=== PATIENT | male | born 1950 | race Two or more races ===

== ENCOUNTER 2017-01-15 13:03 | Inpatient (IN) | payer BC ==
[~2017-01-15] VITALS: Ht 165.1 cm; Wt 79.3 kg
[~2017-01-15 13:03] MED LIST changes: -ASPI325T28 PO; -ASPI81TA85 PO; -ATOR1TAB21 PO; -COLA100C PO; -IRON65TA PO; -PANT40TA2 PO; -PLAV75TA38 PO; -SUCR1TA PO
[2017-01-15 15:31] LABS: ANION GAP 8 MEQ/L (8-16); BLOOD UREA NITROGEN 21 MG/DL (7-18); CALCIUM LEVEL 7.9 MG/DL (8.8-10.2); CARBON DIOXIDE LEVEL 24 MEQ/L (21-32); CHLORIDE LEVEL 109 MEQ/L (98-107); CREATININE FOR GFR 0.91 MG/DL (0.70-1.30); GLOMERULAR FILTRATION RATE > 60.0 (>49); GLUCOSE, FASTING 106 MG/DL (80-110); POTASSIUM SERUM 3.9 MEQ/L (3.5-5.1); SODIUM LEVEL 141 MEQ/L (136-145)
[2017-01-15 15:32] LABS: BASO % 0.5 % (0.0-1.0); EOS # 0.2 K/mm3 (0.0-0.50); EOS % 3.7 % (0.0-3.0); LARGE UNSTAINED CELL # 0.1 K/mm3 (0.0-0.4); LARGE UNSTAINED CELL % 1.8 % (0.0-4.0); LYMPH % 15.3 % (24.0-44.0); MEAN CORPUSCULAR HEMOGLOBIN 29.8 pg (27.0-33.0); MEAN CORPUSCULAR HGB CONC 32.7 g/dl (32.0-36.5); MEAN CORPUSCULAR VOLUME 91.2 fl (80.0-96.0); MONO # 0.4 K/mm3 (0.0-0.8); MONO % 6.9 % (0.0-5.0); NEUTROPHILS # 4.2 K/mm3 (1.8-7.7); NEUTROPHILS % 71.8 % (36.0-66.0); PLATELET COUNT, AUTOMATED 185 k/mm3 (150-450); RED CELL DISTRIBUTION WIDTH 16.5 % (11.5-14.5); WHITE BLOOD COUNT 5.8 K/mm3 (4.0-10.0)
[2017-01-15 16:16] LABS: ALBUMIN 3.1 GM/DL (3.2-5.2); ALBUMIN/GLOBULIN RATIO 1.19 (1.00-1.93); ALKALINE PHOSPHATASE 44 U/L (45-117); ALT/SGPT 12 U/L (12-78); AST/SGOT 10 U/L (15-37); BILIRUBIN,DIRECT < 0.1 MG/DL (0.0-0.2); BILIRUBIN,TOTAL 0.4 MG/DL (0.2-1.0); TOTAL PROTEIN 5.7 GM/DL (6.4-8.2)
[2017-01-15] MEDS ORDERED: ATOR1TAB21 PO (16:35)
[2017-01-15] MEDS ORDERED: PLAV75TA38 PO (16:35)
[2017-01-15] MEDS ORDERED: ASPI325T28 PO (16:35)
[2017-01-15] MEDS ORDERED: GASTROGRAFIN SOLUTION 30ML (Q9963) As Ordered ONE (17:06)
[2017-01-15] MEDS ORDERED: ISOVUE-370 76% 100ML VIAL (Q9967) As Ordered ONE (18:13)
--- NOTE | 2017-01-15 18:45 | REP ---
Clinical: Hematochezia. Technique: Axial contrast enhanced images from the lung bases to the pubic symphysis using oral and 100 ml Isovue 370 intravenous contrast material with coronal and sagittal re-formations. Comparison: 07/23/2011. Findings: Lung bases are clear. Liver, spleen, pancreas, gallbladder, and bilateral adrenal glands appear normal. Nonobstructing intrarenal calculi and/or renovascular calcifications are appreciated along with right cortical cysts measuring up to 2 cm and lower pole hydronephrosis which is likely chronic and without obvious cause for obstruction. The enteric system is without obstruction or acute inflammatory process. No significant diverticulosis or mass lesion is appreciated involving the small or large bowel. Pelvis demonstrates distended bladder and age appropriate prostate/seminal vesicles. No ascites. No free air. No intraperitoneal or retroperitoneal adenopathy. Atherosclerotic changes of the aorta and vasculature noted without aneurysm. Surrounding musculoskeletal structures demonstrate degenerative changes. Impression: 1. Kidneys demonstrate renovascular calcifications and possible nonobstructing renal calculi. There is evidence for mild chronic-appearing hydronephrosis involving the lower pole right kidney without obvious obstructing cause. 2. The enteric system is unremarkable. 3. No further acute intra-abdominal or pelvic pathology appreciated. Signed by Kemal Holder MD 01/15/2017 06:36 P
--- NOTE | 2017-01-15 20:44 | HPE ---
DATE OF ADMISSION: 01/15/2017 HOSPITALIZATION COURSE: The patient is a 66-year-old male with past medical history significant for coronary artery disease, status post angioplasty, history of throat cancer, presented to [facility] on 01/15/2017 for bright red blood per rectum. Patient stated since 01/13/2017, patient stated having increased stomach cramps with diarrhea and he noticed stool is mostly watery with bright red blood and never had similar symptoms in the past. Cannot recall any specific triggers. On average patient will have 5-6 bowel movements in the last few days. Patient never had a colonoscopy before. Patient has been taking aspirin and Plavix after his coronary angioplasty since 2014. ALLERGIES: PENICILLIN. HOME MEDICATION: - aspirin 325 mg by mouth daily - Plavix 300 mg by mouth every day - Lipitor 20 mg by mouth every day PAST MEDICAL HISTORY: 1. Cardiovascular disease. 2. History of throat cancer. 3. History of angioplasty January 2015. 4. [id number] placement and removal. 5. Feeding tube placement and removal. SOCIAL HISTORY: Patient is continuing to smoke 1 1/2 pack daily for more than 40 years. Denies alcohol use. Denies any recreational drug use. GENERAL: No fever, no chills. HEENT: No vision changes or auditory changes. CARDIOVASCULAR: History of heart attack status post angioplasty in January 2015. Denies any current chest pain or palpitation or irregular heart rate. RESPIRATORY: No shortness of breath, no cough, no sputum production. GI: Started having frequent abdominal pain, bloody diarrhea since Saturday. Stool has been watery mostly. MUSCULOSKELETAL : Denies any muscle pain or joint pain. NEUROLOGIC: Denies any numbness or tingling. Blood pressure is 106/60, pulse is 85, respiration 18, temperature 97.6, pulse ox is 100% on room air. Body weight is 81.6 kg, body height is 165.1 cm. GENERAL: No sign of acute distress. Pale, fatigue, alert and oriented times three. HEENT: Normocephalic, atraumatic. Extraocular motor grossly intact. CARDIOVASCULAR: Positive systolic murmur best heard at intercostal space. Positive S1, S2. Regular rate. LUNGS: Decreased breath sounds, clear to auscultation bilaterally. No wheezes or rhonchi. ABDOMEN: Soft, non-tender, non-distended. Bowel sounds present. No rebound, no guarding. EXTREMITIES: Pale, no swelling, no sign of cyanosis. NEUROLOGICAL: Sensation fine touch grossly intact. Muscle strength 5/5. LABORATORY DATA: WBC 5.8, hemoglobin 5.7, hematocrit 17.4, platelet count is 185, sodium 141, potassium 3.9, chloride is 109, carbon dioxide 24, BUN 21, creatinine 0.91. Glomerular filtration rate (GFR) is greater than 60. IMAGING STUDIES: CT abdomen and pelvis with contrast kidney demonstrate neovascular calcification and possible obstructing renal calculi that is evident of mild chronic appearing hydronephrosis involving the lower pole of the right kidney with obvious obstruction cause. The enteric system is unremarkable. No further acute intraabdominal or pelvic pathology. ASSESSMENT AND PLAN: 1. Symptomatic anemia secondary to GI loss. Patient will be on the progressive care unit (PCU) under inpatient status. Dr. Elias has been consulted. Currently recommend blood transfusion and patient may have colonoscopy on 01/17/2017. We will check a hemoglobin and hematocrit every 6 hours. Patient presented with hemoglobin of 5.7, hematocrit of 17.4. Two units of packed red blood cells has been ordered and we will continue to monitor. At this point patient will be on nothing by mouth after blood transfusion. Patient will continue with IV fluid. 2. Patient has been taking aspirin and Plavix after the angioplasty. Due to recurrent GI bleed, this medication will be on hold. 3. History of myocardial infarction (MN) status post angioplasty. 4. History of throat cancer. 5. History of heart murmur. 6. Deep vein thrombosis prophylaxis on thromboembolic deterrent stockings (TEDS) and sequentials and compression device.
[2017-01-15] MEDS ORDERED: PANTOPRAZOLE 40MG INJ (PROTONIX) (C9113) As Ordered ONE (22:46)
[2017-01-15] MEDS: PANTOPRAZOLE 40MG INJ (PROTONIX) (C9113) IV SCH (22:52)
[2017-01-15] MEDS: OCTREOTIDE ACETATE 100 MCG/ML VIAL (J2354) SC SCH (22:52)
[2017-01-15] MEDS: NS 1,000 ML IV SCH (22:58)
[2017-01-15 23:00] VITALS: BP 123/71
[2017-01-15 23:45] VITALS: BP 117/62
[2017-01-16] VITALS (10 sets, daily range): BP systolic 96–118; BP diastolic 53–71
[2017-01-16] MEDS: OCTREOTIDE ACETATE 100 MCG/ML VIAL (J2354) SC SCH ×3 (06:12→22:08)
[2017-01-16 07:30] LABS: MEAN CORPUSCULAR HEMOGLOBIN 30.5 pg (27.0-33.0); MEAN CORPUSCULAR HGB CONC 33.9 g/dl (32.0-36.5); MEAN CORPUSCULAR VOLUME 89.9 fl (80.0-96.0); RED CELL DISTRIBUTION WIDTH 15.6 % (11.5-14.5); WHITE BLOOD COUNT 4.4 K/mm3 (4.0-10.0)
[2017-01-16 08:06] LABS: ANION GAP 5 MEQ/L (8-16); BLOOD UREA NITROGEN 12 MG/DL (7-18); CALCIUM LEVEL 7.9 MG/DL (8.8-10.2); CARBON DIOXIDE LEVEL 28 MEQ/L (21-32); CHLORIDE LEVEL 109 MEQ/L (98-107); CREATININE FOR GFR 0.89 MG/DL (0.70-1.30); GLOMERULAR FILTRATION RATE > 60.0 (>49); GLUCOSE, FASTING 120 MG/DL (80-110); POTASSIUM SERUM 3.7 MEQ/L (3.5-5.1); SODIUM LEVEL 142 MEQ/L (136-145)
--- NOTE | 2017-01-16 08:34 | ECGEPIP ---
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
[2017-01-16] MEDS: NICOTINE 21MG/24HR 1 EA TRANSDERMAL TD SCH (09:30)
[2017-01-16] MEDS: PANTOPRAZOLE 40MG INJ (PROTONIX) (C9113) IV SCH ×2 (09:30→21:54)
[2017-01-16] MEDS: NS 1,000 ML IV SCH ×2 (09:30→21:54)
[2017-01-16] MEDS: ATORVASTATIN 20 MG TAB PO SCH (09:30)
--- NOTE | 2017-01-16 14:20 | IPNPDOC ---
Text Note Date of Service The patient was seen on 01/16/17. NOTE Subjective: Patient is a 66 year old male with a PMHx of CAD s/p angio, PVD s/p stent 01/2015, Hx of Throat CA, who presented to the ED with complaints of bright red blood per rectum. Since 01/13 he has been having stomach cramps, diarrhea with watery stools and blood. He has had a colonoscopy in 04/2016 which was un-revealing. He was found to have a Hg of 5.7 and received 3 units PRBC transfusion. Patient was seen and examined at the bedside. At this time he has no new complaints. Objective: Vitals (See below) General: Lying in bed, no acute distress, comfortable, AAOx3 HEENT: NC, AT CVS: RRR, +S1S2 Lungs: Fair air entry b/l, -w/r/r Abdomen: Soft, ND, NT, +BSx4 Extremities: -edema, -calf tenderness Assessment and plan: 1. Acute symptomatic anemia - likely 2/2 acute blood loss - likely 2/2 GI source - possibly lower, possibly upper - Presented with bright red bleeding per rectum for 3 days duration - Has had a Hg of 5.7 on presentation - s/p 3 units PRBC transfusion - will follow H&H [id number] - will hold aspirin and plavix - will c/w protonix IV BID - Dr. Elias for surgery has been consulted - will be prepped for upper and lower endoscopy on 01/17 2. CAD s/p angioplasty and PVD s/p stent placement - most recent cath was 01/2015 - will hold aspirin and plavix at this time 3. Hx of throat CA 4. Systolic heart murmur 5. Nicotine dependence - c/w nicotine patch 6. DVT prophylaxis - c/w SCDs VS,Fishbone, I+O VS, Fishbone, I+O Laboratory Tests 01/15/17 14:56 Red Blood Count 1.90 L, Mean Corpuscular Volume 91.2, Mean Corpuscular Hemoglobin 29.8, Mean Corpuscular Hemoglobin Concent 32.7, Red Cell Distribution Width 16.5 H, Neutrophils (%) (Auto) 71.8 H, Lymphocytes (%) (Auto ) 15.3 L, Monocytes (%) (Auto) 6.9 H, Eosinophils (%) (Auto) 3.7 H, Basophils (% ) (Auto) 0.5, Neutrophils # (Auto) 4.2, Lymphocytes # (Auto) 1.0 L, Monocytes # (Auto) 0.4, Eosinophils # (Auto) 0.2, Basophils # (Auto) 0.0 01/16/17 00:01 01/16/17 07:18 Red Blood Count 2.89 L, Mean Corpuscular Volume 89.9, Mean Corpuscular Hemoglobin 30.5, Mean Corpuscular Hemoglobin Concent 33.9, Red Cell Distribution Width 15.6 H, Calcium Level 7.9 L 01/16/17 11:54 Vital Signs Date Time Temp Pulse Resp B/P Pulse Ox O2 Delivery O2 Flow Rate FiO2 01/16/17 12:00 96.7 76 16 100/57 97 Room Air I&O- Last 24 Hours up to 6 AM 01/16/17 06:00 Intake Total 500 ml Output Total 900 ml Balance -400 ml FAUSTO WOODS MD Jan 16, 2017 14:20
[2017-01-16] MEDS ORDERED: MOM 30ML SUSPENSION UDC PO ONE (14:45)
[2017-01-16] MEDS ORDERED: MOM 30ML SUSPENSION UDC As Ordered ONE (15:54)
--- NOTE | 2017-01-16 20:35 | EDDOCDS ---
Physician Documentation [facility] Name: Fred Riggs Age: 66 yrs Sex: Male : 1950 Arrival Date: 01/15/2017 Time: 13:03 Bed Admit Hold Private MD: Nestor Franco H. Disposition: 01/15 18:29 Critical Care:. pc Disposition: 01/15/17 18:32 Hospitalization ordered by Cira Ayala for Inpatient Admission. Preliminary diagnosis are Gastrointestinal hemorrhage, unspecified - Lower, Cardiac murmur, unspecified, Anemia, unspecified - severe, symptomatic. - Bed requested for M PCU. - Status is Inpatient Admission. sls1 - Condition is Stable. - Problem is new. - Symptoms have improved. HPI: 14:56 This 66 yrs old Other Male presents to ER via Wheelchair with complaints of Dizziness. pc 14:56 The history is obtained from the patient. He has had abdominal cramping and diarrhea pc for 36 hours. He had an episode of diarrhea at work and felt weak afterwards. He says he has occasional blood in his stool but does not describe balbina blood. 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 It lasted less than 5 seconds and has not recurred. He denies any headaches, fevers or chills. The patient has not experienced similar symptoms in the past. The patient has not recently seen a physician. Historical: - Allergies: PENICILLINS; - Home Meds: 1. Plavix 300 mg Oral tab daily (Last dose: 01/15/2017) 2. Lipitor 20 mg oral tab 1 tab once daily (Last dose: 01/15/2017) 3. aspirin 325 mg Oral tab 1 tab once daily (Last dose: 01/15/2017) - PMHx: Heart Murmer; CAD; PR; cancer, throat; - PSHx: Angioplasty (January 2015); Portocath placement and removal; feeding tube placement and removal; - The history from nurses notes was reviewed: and I agree with what is documented. - Social history: Smoking status: Patient uses tobacco products, heavy tobacco smoker. No barriers to communication noted. - : The pt / caregiver states he / she is on anticoagulants: Plavix. Home medication list is obtained from the patient. - Hospitalizations: : No recent hospitalization is reported. - Exposure Risk Screening:: None identified. - Immunization history:: All immunizations up-to-date. - Family history: Not pertinent. - Social history:: the patient smokes cigarettes 1ppd the patient drinks alcohol, socially. ROS: 14:56 MS/Skin/Lymph: chronic calf claudication. pc 14:56 All systems are negative except as listed. Exam: 14:56 General Appearance: no acute distress, alert. pc 14:56 EENT: normal eye inspection, ears, nose and throat normal, pharynx normal, mucous membranes moist 14:56 Neck: The exam reveals no acute abnormalities. ROM is normal and painless. No nuchal rigidity is noted.. 14:56 Respiratory: no respiratory distress, normal breath sounds. 14:56 CVS: regular pulse rate, regular rhythm, strong peripheral pulses, normal capillary refill, there is a murmur, systolic, grade 2 out of 6. 14:56 Abdomen: soft, non-tender, no organomegaly, bowel sounds hyperactive. 14:56 Back: normal inspection. 14:56 Skin: skin color is normal, warm, dry. 14:56 Extremities: The extremities have a grossly normal appearance, are non-tender, without acute ROM abnormalities. 14:56 Neuro: oriented x 3, cranial nerves normal as tested, no motor deficits, no sensory deficits. 14:56 Psych: normal mood. Vital Signs: 13:04 BP 106 / 60; Pulse 85; Resp 18; Temp 97.6(O); Pulse Ox 100% on R/A; Weight 81.65 kg / ct3 180.01 lbs (R); Height 5 ft. 5 in. (165.10 cm) (R); Pain 0/10; 19:10 BP 104 / 60 (auto/); ld5 19:11 Pulse 82 MON; Pulse Ox 98% ; ld5 19:19 BP 98 / 61 (auto/); ld5 19:19 Pulse 78 MON; Pulse Ox 96% ; ld5 19:49 BP 103 / 56 (auto/); ld5 19:49 Pulse 82 MON; Pulse Ox 93% ; ld5 19:55 Resp 16; Temp 97.2; Pain 0/10; ld5 20:19 BP 117 / 59 (auto/); ld5 20:19 Pulse 80 MON; Pulse Ox 97% ; ld5 20:45 Temp 98; ld5 20:49 BP 112 / 59 (auto/); ld5 20:49 Pulse 86 MON; Pulse Ox 96% ; ld5 21:19 Pulse 84 MON; Pulse Ox 96% ; ld5 21:19 BP 109 / 62 (auto/); Resp 16; Temp 97.4; Pain 0/10; ld5 21:40 BP 105 / 55 (auto/); ld5 21:40 Pulse 84 MON; Pulse Ox 95% ; ld5 21:49 BP 108 / 57 (auto/); ld5 21:49 Pulse 82 MON; Pulse Ox 95% ; ld5 13:04 Body Mass Index 29.95 (81.65 kg, 165.10 cm) ct3 MDM: 13:32 Accucheck ordered. cjh 13:33 ECG WITH READING ER PHYS+CARDIAG ordered. EDMS 13:47 Fingerstick Blood Sugar Ordered. EDMS 14:44 IV Saline Lock ordered. pc 14:45 Fingerstick Blood Sugar Reviewed. pc 14:45 Stool samples ordered. pc 14:46 CBC with Diff Ordered. EDMS 14:46 MED Profile Ordered. EDMS 14:56 Differential Diagnosis: diarrheal illness, brief episode of dizziness - resolved, CAD, pc PAD. Plan: labs. 15:38 CBC with Diff Reviewed. pc 15:38 MED Profile Reviewed. pc 15:40 Type & Screen Ordered. EDMS 15:41 Financial registration complete. gjb 15:59 BED REQUEST+ADM ordered. EDMS 16:05 LIVER PROFILE Ordered. EDMS 16:08 [facility] Payment Agreement was scanned into [employer] and attached to record. gjb 16:12 MED Profile Reviewed. pc 16:30 MED Profile Reviewed. pc 16:30 LIVER PROFILE Reviewed. pc 16:33 CT ABD & PELVIS: IV and Oral Contrast Ordered. EDMS 17:13 Diatrizoate Meglumine & Sodium Liquid 10 ml PO once; mix in 290cc of water ordered. bcj 17:54 Diatrizoate Meglumine & Sodium Liquid 10 ml PO once; mix in 290cc of water ordered. bcj 18:13 Type & Screen Reviewed. pc 18:15 Transfuse PRBC's 2 units, ensure PRBCs ordered in lab ordered. pc 18:16 Type and Cross, Packed Cells Ordered. EDMS 18:29 Data reviewed: old medical records, vital signs, nurses notes, lab test results. Test pc interpretation: LAB - all labs as ordered have been reviewed, interpreted and considered in the overall management of the clinical presentation;. The patient has been re-examined and re-evaluated. The patient's symptoms have mildly improved after treatment. Physician consultation: Dr. Nic Elias MD regarding patient's condition, and he requests the CT as ordered and will see in consult . 18:29 Physician consultation: Dr. Cira Ayala regarding admission. Disposition: The historical pc points, examination findings, and any diagnostic results supporting the provided diagnosis, were discussed with the patient or legal guardian. The need for further work-up and/or treatment in the hospital was explained. 19:59 Admission / Observation Status ordered. EDMS 19:59 GASTROINTESTINAL (GI) PANEL Ordered. EDMS 20:02 HEMOGLOBIN & HEMATOCRIT Ordered. EDMS 20:02 COMPLETE BLOOD COUNT Ordered. EDMS 20:02 BASIC METABOLIC PROFILE Ordered. EDMS 20:11 HEMOGLOBIN A1C Ordered. EDMS 02 03:47 PACKED CELLS Ordered. EDMS 07:52 HEMOGLOBIN & HEMATOCRIT Ordered. EDMS 07:52 HEMOGLOBIN & HEMATOCRIT Ordered. EDMS 09:57 CLEAR LIQUIDS DIET ordered. EDMS 10:00 NPO DIET ordered. EDMS 19:31 HEMOGLOBIN & HEMATOCRIT Ordered. EDMS 19:31 COMPLETE BLOOD COUNT Ordered. EDMS 19:31 BASIC METABOLIC PROFILE Ordered. EDID Point of Care Testing: Blood Glucose: 01/15 14:17 Blood Glucose: 123 mg/dL; [facility] Ranges: Administered Medications: 07:45 Drug: Diatrizoate Meglumine & Sodium 10 ml [diatrizoate meglumine and diat.sodium 66 bcj %-10 % oral solution (10 mL)] Route: PO; 17:13 Drug: Diatrizoate Meglumine & Sodium 10 ml [diatrizoate meglumine and diat.sodium 66 bcj %-10 % oral solution (10 mL)] Route: PO; Critical Care Time: 18:29 Critical care time: Bedside Care: 25 minutes, Consultation: 20 minutes, Family pc Intervention: 15 minutes. Total time: 60 minutes Signatures: Dispatcher [employer] HAMZAHID Jorge Bonilla MD MD pc Johnson, Bruce, RN RN bcj Ques[place] [facility], Deborah, RN RN daq Strong, Shannon, RN RN sls1 Adriana Li RN RN [facility] Neel Gaitan RN RN Eri Iqbal The chart was reviewed and I authenticate all verbal orders and agree with the evaluation and treatment provided.Corrections: (The following items were deleted from the chart) 13:43 13:34 PMHx: cancer, lung; [facility] 16:05 15:41 LIVER PROFILE+LAB ordered. EDMS EDMS 18:22 18:19 TYPE & SCREEN ordered. EDMS EDMS 19:59 19:59 GASTROINTESTINAL (GI) PANEL ordered. EDMS EDMS 19:59 19:59 GASTROINTESTINAL (GI) PANEL ordered. EDMS EDMS 01/16 04:05 03:49 TYPE & SCREEN ordered. EDMS EDMS 09:57 01/15 19:59 NPO DIET ordered. EDMS EDMS 01/16 09:59 09:57 NPO FOR TEST/PROCEDURE ordered. EDMS EDMS : 01/15 16:08 [facility] Payment Agreement vi MTDD
--- NOTE | 2017-01-16 20:36 | EDDOCDS ---
Nurse's Notes [facility] Name: Frde Dave Age: 66 yrs Sex: Male : 1950 Arrival Date: 01/15/2017 Time: 13:03 Bed Admit Hold Private MD: Nestor Franco H. Diagnosis: Gastrointestinal hemorrhage, unspecified-Lower;Cardiac murmur, unspecified;Anemia, unspecified-severe, symptomatic Presentation: 01/15 13:15 Presenting complaint: Patient states: stomach cramps and diarrhea started last Saturday, [facility] today noted cramping in legs on both sides in back, couldn't stay at work walking on concrete, then daughter took him to Urgent Care and they told him to come here after doing negative flu swab, negative strep and an EKG showing Sinus Rhythm with LVH, has a history of blood clots, had one behind his chemo port just finished unknown blood thinner in addition to Plavix which has been on for years. Here today for cramping pain in legs and daughter feels he is pale. Daughter states home fingersitck 166 at 100 even though didn't eat since 5am. Patient also states diarrhea has been red and bloody. Adult Sepsis Screening: The patient does not have new or worsening altered mentation. Patient's respiratory rate is less than 22. Systolic blood pressure is greater than 100. Patient has a qSOFA score of 0- Negative Sepsis Screen. Suicide/Homicide risk assessment- the patient denies having any suicidal and/or homicidal ideations and does not present with any other emotional, behavioral or mental health complaints. Status: Patient is not a special service representative or dependent. Transition of care: patient was not received from another setting of care. 13:15 Acuity: PAYTON Level 3 [facility] 13:15 Method Of Arrival: Wheelchair [facility] Triage Assessment: 13:24 General: Appears in no apparent distress, comfortable, Behavior is appropriate for age, [facility] cooperative. Pain: Denies pain. HIV screening NA for this visit Offered previously. Neurological: Level of Consciousness is awake, alert, Oriented to person, place, time. Respiratory: Airway is patent Respiratory effort is even, unlabored, Respiratory pattern is regular, symmetrical. GI: Reports cramping, diarrhea. Derm: Skin is pink, warm & dry. Musculoskeletal: Range of motion intact in all extremities. Historical: - Allergies: PENICILLINS; - Home Meds: 1. Plavix 300 mg Oral tab daily (Last dose: 01/15/2017) 2. Lipitor 20 mg oral tab 1 tab once daily (Last dose: 01/15/2017) 3. aspirin 325 mg Oral tab 1 tab once daily (Last dose: 01/15/2017) - PMHx: Heart Murmer; CAD; [place]; cancer, throat; - PSHx: Angioplasty (January 2015); Portocath placement and removal; feeding tube placement and removal; - The history from nurses notes was reviewed: and I agree with what is documented. - Social history: Smoking status: Patient uses tobacco products, heavy tobacco smoker. No barriers to communication noted. - : The pt / caregiver states he / she is on anticoagulants: Plavix. Home medication list is obtained from the patient. - Hospitalizations: : No recent hospitalization is reported. - Exposure Risk Screening:: None identified. - Immunization history:: All immunizations up-to-date. - Family history: Not pertinent. - Social history:: the patient smokes cigarettes 1ppd the patient drinks alcohol, socially. Screenin:00 Screening information is obtained from the patient. Fall risk: No risks identified. bcj Assistance ADL's: requires no assistance with activities of daily living. Abuse/DV Screen: The patient / caregiver reports he/she is: not in a situation that causes fear, pain or injury. Nutritional screening: No deficits noted. Advance Directives: Currently, there is no health care proxy. home support is adequate. Assessment: 15:00 General: Appears in no apparent distress, comfortable, Behavior is cooperative. Pain: bcj Denies pain. Respiratory: Airway is patent Respiratory effort is even, unlabored. Derm: Skin is pink, warm & dry. Musculoskeletal: both calves soft non tender. 18:32 General: Appears in no apparent distress, comfortable, Behavior is cooperative. Pain: bcj Denies pain. GI: Abdomen is flat, non- distended. 19:05 General: Appears in no apparent distress, Behavior is appropriate for age, cooperative. ld5 Pain: Denies pain. Neurological: Level of Consciousness is awake, alert, Oriented to person, place, time, Health And Wellness Advisor are equal bilaterally. Respiratory: Airway is patent Respiratory effort is even, unlabored, Breath sounds are clear bilaterally. Denies shortness of breath at rest, on exertion. GI: Abdomen is non- distended Bowel sounds present X 4 quads. Abd is soft and non tender X 4 quads. Denies nausea, vomiting. Derm: Skin is intact, Skin is dry, Skin is pale. 19:50 General: Pt laying in bed watching TV. Requesting food. This RN explained to pt that we ld5 should have to wait until the Hospitalist sees pt to make a decision regarding food. Pt denies any pain. Tolerating transfusion well. Respirations easy and unlabored. Will continue to monitor. 20:33 General: Appears in no apparent distress, Behavior is cooperative. Pain: Denies pain. ld5 Neurological: Level of Consciousness is awake, obeys commands. Respiratory: Airway is patent Respiratory effort is even, unlabored. 20:45 General: First unit of PRBCs complete. Pt tolerated well. Respirations easy and ld5 unlabored. Will continue to monitor. 21:36 General: Second unit of PRBCs started. Pt aware of signs and symptoms to report to RN ld5 or staff. No apparent distress at this time. Lungs clear bilaterally. Will continue to monitor. 22:30 General: Report given to lasha Heart RN. ld5 01/16 07:00 General: Report taken from night colby nurse. All further charting will be in [address] Vital Signs: 01/15 13:04 BP 106 / 60; Pulse 85; Resp 18; Temp 97.6(O); Pulse Ox 100% on R/A; Weight 81.65 kg ct3 (R); Height 5 ft. 5 in. (165.10 cm) (R); Pain 0/10; 19:10 BP 104 / 60 (auto/); ld5 19:11 Pulse 82 MON; Pulse Ox 98% ; ld5 19:19 BP 98 / 61 (auto/); ld5 19:19 Pulse 78 MON; Pulse Ox 96% ; ld5 19:49 BP 103 / 56 (auto/); ld5 19:49 Pulse 82 MON; Pulse Ox 93% ; ld5 19:55 Resp 16; Temp 97.2; Pain 0/10; ld5 20:19 BP 117 / 59 (auto/); ld5 20:19 Pulse 80 MON; Pulse Ox 97% ; ld5 20:45 Temp 98; ld5 20:49 BP 112 / 59 (auto/); ld5 20:49 Pulse 86 MON; Pulse Ox 96% ; ld5 21:19 Pulse 84 MON; Pulse Ox 96% ; ld5 21:19 BP 109 / 62 (auto/); Resp 16; Temp 97.4; Pain 0/10; ld5 21:40 BP 105 / 55 (auto/); ld5 21:40 Pulse 84 MON; Pulse Ox 95% ; ld5 21:49 BP 108 / 57 (auto/); ld5 21:49 Pulse 82 MON; Pulse Ox 95% ; ld5 13:04 Body Mass Index 29.95 (81.65 kg, 165.10 cm) ct3 Vitals: 13:04 Log In Time: January 15, 2017 at 13:01. ct3 13:04 RN notified that patient meets Red Flag criteria. ct3 ED Course: 13:04 Patient visited by Jaci Hahn PCA. ct3 13:04 Nestor Franco is Private Physician. ct3 13:04 Patient moved to Waiting ct3 13:12 Patient moved to Pre RCE ct3 13:21 Triage Initiated cjh 13:34 Cherelle Zacarias,ESTELA is Primary Nurse. cjh 13:34 Patient moved to PD2 / 27 cjh 13:37 EKG done. (by ED staff). Reviewed by Jorge Bonilla MD. ar3 13:39 Patient visited by Elin Pantoja PCA. ar3 13:40 Patient moved to Pre RCE ar3 14:12 Patient moved to 17 ar3 14:21 Jorge Bonilla MD is Attending Physician. pc 14:44 Patient visited by Jorge Bonilla MD. pc 15:00 No apparent distress. Resting quietly. awaiting re-evaluation by ER physician. bcj 15:00 The patient / caregiver is instructed regarding the plan of care and ED course. bcj 15:00 Inserted saline lock: 20 gauge in left antecubital area. Labs drawn. (by ED staff). bcj Sent per order to lab. 15:03 Patient visited by Paulino Palumbo RN. bcj 16:08 [facility] Payment Agreement was scanned into [employer] and attached to record. gjb 16:52 Patient visited by Paulino Palumbo RN. bcj 18:25 Cira Ayala pot fisher. ys2 18:29 Patient visited by Jorge Bonilla MD. pc 18:31 Cira Ayala is Hospitalizing Provider. pc 18:32 Resting quietly. Awaiting bed assignment. bcj 18:32 Patient has correct armband on for positive identification. Placed in gown. Bed in low bcj position. Call light in reach. Adult w/ patient. 18:32 IV is intact. bcj 18:33 Patient visited by Paulino Palumbo, RN. bcj 19:01 Primary Nurse role handed off by Cherelle Zacarias,RN kr3 19:20 CT ABD & PELVIS: IV and Oral Contrast Returned. EDMS 19:21 Patient visited by Blanca Del Rio,ESTELA. ld5 20:20 Patient visited by Blanca Del Rio,ESTELA. ld5 20:24 Patient moved to Admit Hold ml3 21:39 Patient visited by Blanca Del Rio,ESTELA. ld5 22:10 Patient visited by Blanca Del Rio,ESTELA. ld5 02 08:51 EKG-ADULT Returned. EDMS Administered Medications: 01/15 07:45 Drug: Diatrizoate Meglumine & Sodium 10 ml [diatrizoate meglumine and diat.sodium 66 bcj %-10 % oral solution (10 mL)] Route: PO; 17:13 Drug: Diatrizoate Meglumine & Sodium 10 ml [diatrizoate meglumine and diat.sodium 66 bcj %-10 % oral solution (10 mL)] Route: PO; Point of Care Testing: Blood Glucose: 14:17 Blood Glucose: 123 mg/dL; [facility] Ranges: Order Results: Lab Order: Fingerstick Blood Sugar; SPEC'M 01/15/17 13:39 Test: BEDSIDE GLUCOSE; Value: 123; Range: 80-115; Abnormal: Above high normal; Units: MG/DL; Status: F Lab Order: CBC with Diff; SPEC'M 01/15/17 14:56 Test: WHITE BLOOD COUNT; Value: 5.8; Range: 4.0-10.0; Units: K/mm3; Status: F Test: RED BLOOD COUNT; Value: 1.90; Range: 4.30-6.10; Abnormal: Below low normal; Units: M/mm3; Status: F Test: HEMOGLOBIN; Value: 5.7; Range: 14.0-18.0; Abnormal: Critical Low; Units: g/dl; Status: F Test: HEMATOCRIT; Value: 17.4; Range: 42.0-52.0; Abnormal: Below low normal; Units: %; Status: F Test: MEAN CORPUSCULAR VOLUME; Value: 91.2; Range: 80.0-96.0; Units: fl; Status: F Test: MEAN CORPUSCULAR HEMOGLOBIN; Value: 29.8; Range: 27.0-33.0; Units: pg; Status: F Test: MEAN CORPUSCULAR HGB CONC; Value: 32.7; Range: 32.0-36.5; Units: g/dl; Status: F Test: RED CELL DISTRIBUTION WIDTH; Value: 16.5; Range: 11.5-14.5; Abnormal: Above high normal; Units: %; Status: F Test: PLATELET COUNT, AUTOMATED; Value: 185; Range: 150-450; Units: k/mm3; Status: F Test: NEUTROPHILS %; Value: 71.8; Range: 36.0-66.0; Abnormal: Above high normal; Units: %; Status: F Test: LYMPH %; Value: 15.3; Range: 24.0-44.0; Abnormal: Below low normal; Units: %; Status: F Test: MONO %; Value: 6.9; Range: 0.0-5.0; Abnormal: Above high normal; Units: %; Status: F Test: EOS %; Value: 3.7; Range: 0.0-3.0; Abnormal: Above high normal; Units: %; Status: F Test: BASO %; Value: 0.5; Range: 0.0-1.0; Units: %; Status: F Test: LARGE UNSTAINED CELL %; Value: 1.8; Range: 0.0-4.0; Units: %; Status: F Test: NEUTROPHILS #; Value: 4.2; Range: 1.8-7.7; Units: K/mm3; Status: F Test: LYMPH #; Value: 1.0; Range: 1.5-4.5; Abnormal: Below low normal; Units: K/mm3; Status: F Test: MONO #; Value: 0.4; Range: 0.0-0.8; Units: K/mm3; Status: F Test: EOS #; Value: 0.2; Range: 0.0-0.50; Units: K/mm3; Status: F Test: BASO #; Value: 0.0; Range: 0.0-0.2; Units: K/mm3; Status: F Test: LARGE UNSTAINED CELL #; Value: 0.1; Range: 0.0-0.4; Units: K/mm3; Status: F Lab Order: MED Profile; [facility] 01/15/17 14:56 Test: GLUCOSE, FASTING; Value: 106; Range: 80-110; Units: MG/DL; Status: F Test: BLOOD UREA NITROGEN; Value: 21; Range: 7-18; Abnormal: Above high normal; Units: MG/DL; Status: F Test: CREATININE FOR GFR; Value: 0.91; Range: 0.70-1.30; Units: MG/DL; Status: F Test: GLOMERULAR FILTRATION RATE; Value: > 60.0; Range: >49; Status: F Test: SODIUM LEVEL; Value: 141; Range: 136-145; Units: MEQ/L; Status: F Test: POTASSIUM SERUM; Value: 3.9; Range: 3.5-5.1; Units: MEQ/L; Status: F Test: CHLORIDE LEVEL; Value: 109; Range: 98-107; Abnormal: Above high normal; Units: MEQ/L; Status: F Test: CARBON DIOXIDE LEVEL; Value: 24; Range: 21-32; Units: MEQ/L; Status: F Test: ANION GAP; Value: 8; Range: 8-16; Units: MEQ/L; Status: F Test: CALCIUM LEVEL; Value: 7.9; Range: 8.8-10.2; Abnormal: Below low normal; Units: MG/DL; Status: F Test Note: ; Units are mL/min/1.73 m2 Chronic Kidney Disease Staging per NKF: Stage I & II GFR >=60 Normal to Mildly Decreased Stage III GFR 30-59 Moderately Decreased Stage IV GFR 15-29 Severely Decreased Stage V GFR <15 Very Little GFR Left ESRD GFR <15 on CRITICAL CARE PHYSICIAN Lab Order: Type & Screen; [facility] 01/15/17 16:24 Test: BLOOD TYPE; Value: A POS; Status: F Test: AB SCREEN (INDIRECT LENARD)VIS; Value: NEGATIVE; Status: F Lab Order: LIVER PROFILE; [facility] 01/15/17 14:56 Test: AST/SGOT; Value: 10; Range: 15-37; Abnormal: Below low normal; Units: U/L; Status: F Test: ALT/SGPT; Value: 12; Range: 12-78; Units: U/L; Status: F Test: ALKALINE PHOSPHATASE; Value: 44; Range: 45-117; Abnormal: Below low normal; Units: U/L; Status: F Test: BILIRUBIN,TOTAL; Value: 0.4; Range: 0.2-1.0; Units: MG/DL; Status: F Test: BILIRUBIN,DIRECT; Value: < 0.1; Range: 0.0-0.2; Units: MG/DL; Status: F Test: TOTAL PROTEIN; Value: 5.7; Range: 6.4-8.2; Abnormal: Below low normal; Units: GM/DL; Status: F Test: ALBUMIN; Value: 3.1; Range: 3.2-5.2; Abnormal: Below low normal; Units: GM/DL; Status: F Test: ALBUMIN/GLOBULIN RATIO; Value: 1.19; Range: 1.00-1.93; Status: F Lab Order: HEMOGLOBIN & HEMATOCRIT; [facility] 01/16/17 00:01 Test: HEMOGLOBIN; Value: 7.9; Range: 14.0-18.0; Units: g/dl; Status: F Test: HEMATOCRIT; Value: 23.8; Range: 42.0-52.0; Abnormal: Below low normal; Units: %; Status: F Lab Order: COMPLETE BLOOD COUNT; [facility] 01/16/17 07:18 Test: WHITE BLOOD COUNT; Value: 4.4; Range: 4.0-10.0; Units: K/mm3; Status: F Test: RED BLOOD COUNT; Value: 2.89; Range: 4.30-6.10; Abnormal: Below low normal; Units: M/mm3; Status: F Test: HEMOGLOBIN; Value: 8.8; Range: 14.0-18.0; Abnormal: Below low normal; Units: g/dl; Status: F Test: HEMATOCRIT; Value: 26.0; Range: 42.0-52.0; Abnormal: Below low normal; Units: %; Status: F Test: MEAN CORPUSCULAR VOLUME; Value: 89.9; Range: 80.0-96.0; Units: fl; Status: F Test: MEAN CORPUSCULAR HEMOGLOBIN; Value: 30.5; Range: 27.0-33.0; Units: pg; Status: F Test: MEAN CORPUSCULAR HGB CONC; Value: 33.9; Range: 32.0-36.5; Units: g/dl; Status: F Test: RED CELL DISTRIBUTION WIDTH; Value: 15.6; Range: 11.5-14.5; Abnormal: Above high normal; Units: %; Status: F Test: PLATELET COUNT, AUTOMATED; Value: 147; Range: 150-450; Abnormal: Below low normal; Units: k/mm3; Status: F Lab Order: BASIC METABOLIC PROFILE; [facility] 07:18 Test: GLUCOSE, FASTING; Value: 120; Range: 80-110; Abnormal: Above high normal; Units: MG/DL; Status: F Test: BLOOD UREA NITROGEN; Value: 12; Range: 7-18; Units: MG/DL; Status: F Test: CREATININE FOR GFR; Value: 0.89; Range: 0.70-1.30; Units: MG/DL; Status: F Test: GLOMERULAR FILTRATION RATE; Value: > 60.0; Range: >49; Status: F Test: SODIUM LEVEL; Value: 142; Range: 136-145; Units: MEQ/L; Status: F Test: POTASSIUM SERUM; Value: 3.7; Range: 3.5-5.1; Units: MEQ/L; Status: F Test: CHLORIDE LEVEL; Value: 109; Range: 98-107; Abnormal: Above high normal; Units: MEQ/L; Status: F Test: CARBON DIOXIDE LEVEL; Value: 28; Range: 21-32; Units: MEQ/L; Status: F Test: ANION GAP; Value: 5; Range: 8-16; Abnormal: Below low normal; Units: MEQ/L; Status: F Test: CALCIUM LEVEL; Value: 7.9; Range: 8.8-10.2; Abnormal: Below low normal; Units: MG/DL; Status: F Test Note: ; Units are mL/min/1.73 m2 Chronic Kidney Disease Staging per NKF: Stage I & II GFR >=60 Normal to Mildly Decreased Stage III GFR 30-59 Moderately Decreased Stage IV GFR 15-29 Severely Decreased Stage V GFR <15 Very Little GFR Left ESRD GFR <15 on CRITICAL CARE PHYSICIAN Lab Order: HEMOGLOBIN A1C; [facility] 01/16/17 07:18 Test: HEMOGLOBIN A1c; Value: 5.8; Range: 4.5-6.2; Units: %; Status: F Test: ESTIMATED AVERAGE GLUCOSE; Value: 120; Range: 60-110; Abnormal: Above high normal; Units: MG/DL; Status: F Lab Order: HEMOGLOBIN & HEMATOCRIT; [facility] 01/16/17 11:54 Test: HEMOGLOBIN; Value: 8.1; Range: 14.0-18.0; Abnormal: Below low normal; Units: g/dl; Status: F Test: HEMATOCRIT; Value: 24.3; Range: 42.0-52.0; Abnormal: Below low normal; Units: %; Status: F Lab Order: HEMOGLOBIN & HEMATOCRIT; [facility] 01/16/17 17:47 Test: HEMOGLOBIN; Value: 8.3; Range: 14.0-18.0; Abnormal: Below low normal; Units: g/dl; Status: F Test: HEMATOCRIT; Value: 25.5; Range: 42.0-52.0; Abnormal: Below low normal; Units: %; Status: F Radiology Order: EKG-ADULT Test: EKG-ADULT REASON FOR EXAMINATION: dizzyness; Stationary ECG Study; [facility] - ED; ; Test Date: 2017-01-15; Pat Name: FRED DAVE Department:; Room: -; Gender: M 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; : 1950 Requested By: Jorge Kidd; Order Number: [id number] Reading MD: Jorge Bonilla; Measurements; Intervals [place]; Rate: 82 P: 77; CO: 167 QRS: 31; QRSD: 94 T: 56; QT: 346; QTc: 406; Interpretive Statements; SINUS RHYTHM; INCOMPLETE RIGHT BUNDLE BRANCH BLOCK; NO PRIORS; Electronically Signed On 01-16-2017 8:33:32 EST by Jorge Bonilla; Radiology Order: CT ABD & PELVIS: IV and Oral Contrast Test: CT ABD & PELVIS: IV and Oral Contrast REASON FOR EXAMINATION: LGI bleed r/o mass or diverticular bleeed; Clinical: Hematochezia.; ; Technique: Axial contrast enhanced images from the lung bases to the pubic; symphysis using oral and 100 ml Isovue 370 intravenous contrast material with; coronal and sagittal re-formations.; ; Comparison: 07/23/2011.; ; Findings:; Lung bases are clear.; Liver, spleen, pancreas, gallbladder, and bilateral adrenal glands appear normal.; Nonobstructing intrarenal calculi and/or renovascular calcifications are; appreciated along with right cortical cysts measuring up to 2 cm and lower pole; hydronephrosis which is likely chronic and without obvious cause for obstruction.; The enteric system is without obstruction or acute inflammatory process. No; significant diverticulosis or mass lesion is appreciated involving the small or; large bowel. Pelvis demonstrates distended bladder and age appropriate; prostate/seminal vesicles. No ascites. No free air. No intraperitoneal or; retroperitoneal adenopathy. Atherosclerotic changes of the aorta and vasculature; noted without aneurysm. Surrounding musculoskeletal structures demonstrate; degenerative changes.; ; Impression:; 1. Kidneys demonstrate renovascular calcifications and possible nonobstructing; renal calculi. There is evidence for mild chronic-appearing hydronephrosis; involving the lower pole right kidney without obvious obstructing cause.; 2. The enteric system is unremarkable.; 3. No further acute intra-abdominal or pelvic pathology appreciated.; ; ; Signed by; Kemal Holder MD 01/15/2017 06:36 P; Outcome: 18:32 Decision to Hospitalize by Provider. 01/16 20:34 Patient left the ED. sls1 Signatures: Dispatcher [employer] EDMS Jorge Bonilla MD MD pc Johnson, Bruce, RN RN Brigitte Livingston, Sample Wrapper Unit ml3 Cherelle ZacariasRN RN kr3 Elin Pantoja, VENDING MACHINE MECHANIC VENDING MACHINE MECHANIC ar3 Blanca Del Rio,RN RN ld5 Jaci Hahn, VENDING MACHINE MECHANIC VENDING MACHINE MECHANIC ct3 Shelia Vasquez RN RN sls1 Adriana Li RN RN [facility] Kimmie Lindsay RN RN [email or web address] Eri Cohn Cira Ayala ys2 Corrections: (The following items were deleted from the chart) 01/15 13:28 13:15 Presenting complaint: Patient states: stomach cramps and diarrhea started last [facility] Saturday, today noted cramping in legs on both sides in back, couldn't stay at work walking on concrete, then daughter took him to Urgent Care and they told him to come here after doing negative flu swab, negative strep and an EKG showing Sinus Rhythm with LVH, has a history of blood clots, had one behind his chemo port just finished unknown blood thinner in addition to Plavix which has been on for years. Here today for cramping pain in legs and daughter feels he is pale [facility] 13:43 13:34 PMHx: cancer, lung; [facility] 21:38 21:19 BP 109 / 62 Auto; ld5 ld5 MTDD
[2017-01-16] MEDS: DOCUSATE SODIUM 100 MG CAP PO SCH (21:54)
[2017-01-17] VITALS (7 sets, daily range): BP systolic 114–130; BP diastolic 59–69
[2017-01-17] MEDS ORDERED: GOLYTELY SOLN 4000 ML BTL PO ONE (06:00)
[2017-01-17] MEDS: OCTREOTIDE ACETATE 100 MCG/ML VIAL (J2354) SC SCH ×3 (06:04→21:42)
[2017-01-17 06:19] LABS: MEAN CORPUSCULAR HGB CONC 32.9 g/dl (32.0-36.5); MEAN CORPUSCULAR VOLUME 91.3 fl (80.0-96.0); RED CELL DISTRIBUTION WIDTH 15.6 % (11.5-14.5); WHITE BLOOD COUNT 4.9 K/mm3 (4.0-10.0)
[2017-01-17 06:32] LABS: ANION GAP 6 MEQ/L (8-16); BLOOD UREA NITROGEN 6 MG/DL (7-18); CALCIUM LEVEL 7.9 MG/DL (8.8-10.2); CARBON DIOXIDE LEVEL 28 MEQ/L (21-32); CHLORIDE LEVEL 110 MEQ/L (98-107); CREATININE FOR GFR 0.74 MG/DL (0.70-1.30); GLOMERULAR FILTRATION RATE > 60.0 (>49); GLUCOSE, FASTING 135 MG/DL (80-110); POTASSIUM SERUM 3.6 MEQ/L (3.5-5.1); SODIUM LEVEL 144 MEQ/L (136-145)
[2017-01-17] MEDS: NICOTINE 21MG/24HR 1 EA TRANSDERMAL TD SCH (08:44)
[2017-01-17] MEDS: PANTOPRAZOLE 40MG INJ (PROTONIX) (C9113) IV SCH ×2 (08:44→21:42)
[2017-01-17] MEDS: DOCUSATE SODIUM 100 MG CAP PO SCH ×2 (08:44→21:42)
[2017-01-17] MEDS: ATORVASTATIN 20 MG TAB PO SCH (08:44)
[2017-01-17] MEDS: NS 1,000 ML IV SCH (12:38)
--- NOTE | 2017-01-17 13:44 | IPNPDOC ---
Text Note Date of Service The patient was seen on 01/17/17. NOTE Subjective: Patient is a 66 year old male with a PMHx of CAD s/p angio, PVD s/p stent 01/2015, Hx of Throat CA, who presented to the ED with complaints of bright red blood per rectum. Since 01/13 he has been having stomach cramps, diarrhea with watery stools and blood. He has had a colonoscopy in 04/2016 which was un-revealing. He was found to have a Hg of 5.7 and received 3 units PRBC transfusion. Patient was seen and examined at the bedside. Patient denies any abdominal pain or any further bloody bowel movements. Objective: Vitals (See below) General: Lying in bed, no acute distress, comfortable, AAOx3 HEENT: NC, AT CVS: RRR, +S1S2 Lungs: Fair air entry b/l, -w/r/r Abdomen: Soft, ND, NT, +BSx4 Extremities: -edema, -calf tenderness Assessment and plan: 1. Acute symptomatic anemia - likely 2/2 acute blood loss - likely 2/2 GI source - possibly lower, possibly upper - Presented with bright red bleeding per rectum for 3 days duration - Has had a Hg of 5.7 on presentation - s/p 3 units PRBC transfusion - Hg remains stable at this time; will continue to follow q6 hours - continue to hold aspirin and plavix - will c/w protonix IV BID - Will go for EGD and colonoscopy today with Dr. Elias 2. CAD s/p angioplasty and PVD s/p stent placement - most recent cath was 01/2015 - will hold aspirin and plavix at this time 3. Hx of throat CA 4. Systolic heart murmur 5. Nicotine dependence - c/w nicotine patch 6. DVT prophylaxis - c/w SCDs Disposition: - Will determine based on results of endoscopy VS,Roxanna, I+O VS, Roxanna, I+O Laboratory Tests 01/16/17 17:47 01/17/17 00:36 01/17/17 05:38 Calcium Level 7.9 L, Red Blood Count 2.88 L, Mean Corpuscular Volume 91.3, Mean Corpuscular Hemoglobin 30.0, Mean Corpuscular Hemoglobin Concent 32.9, Red Cell Distribution Width 15.6 H 01/17/17 12:13 Vital Signs Date Time Temp Pulse Resp B/P Pulse Ox O2 Delivery O2 Flow Rate FiO2 01/17/17 13:32 96.4 60 20 118/60 99 01/17/17 12:40 Room Air I&O- Last 24 Hours up to 6 AM 01/17/17 06:00 Intake Total 3820 ml Output Total 3700 ml Balance 120 ml FAUSTO WOODS MD Jan 17, 2017 13:44
[2017-01-17] MEDS ORDERED: fentaNYL 100 MCG/2 ML INJECTION (J3010) As Ordered ONE (14:33)
--- NOTE | 2017-01-17 14:34 | CR ---
DATE OF CONSULTATION: 01/16/2017 PRINCIPAL DIAGNOSIS: Bright red blood per rectum and anemia. HISTORY OF PRESENT ILLNESS: The patient has noticed over the last 72 hours that he has had multiple bowel movements and has developed bright red blood per rectum. He noticed that it was worse on the day of admission. He has been on some aspirin and Plavix, but has not been not diagnosed with any anemia in the past. Has not had any bright red blood per rectum and no gastrointestinal complaints. PAST MEDICAL HISTORY: His past medical history is significant for: 1. History of cardiovascular disease. 2. History of throat cancer. 3. History of angioplasty (coronary artery disease) in 2014. 4. History of Atchvk-C-Xsuk placement and removal. 5. History of feeding tube placement and removal. MEDICATIONS: Include: - aspirin - Plavix - Lipitor PHYSICAL EXAMINATION: Reveals a 66-year-old male who looks stated age. HEENT is unremarkable except for his previous neck surgery with his radical neck dissection. He has also had a previous trach in place. Lungs reveal some rhonchi bilaterally with a few crackles. Heart is regular. Abdomen is soft, nondistended, nontender. IMPRESSION AND PLAN: The patient has a significant anemia of undetermined etiology. He has had some bright red blood per rectum. It is most likely a lower GI source, i.e. some diverticular bleeding, although angiodysplasias is possible, as well as other benign and malignant possibilities. I do recommend that we perform a colonoscopy, but his hematocrit is so low I am surprised that he may have had some ongoing anemia of undetermined etiology for awhile, which would also be concerning for possible upper GI source. He does not have any significant reflux symptoms or indigestion or epigastric pain, but we will proceed with an upper, as well as lower endoscopy for evaluation of the significant and problematic anemia.
[2017-01-17] MEDS ORDERED: ePHEDrine SULFATE 25 MG/5 ML(5MG/ML) SYRINGE As Ordered ONE (14:37)
[2017-01-17] MEDS ORDERED: PROPOFOL 200 MG/20 ML VIAL As Ordered ONE (14:37)
[2017-01-17] MEDS ORDERED: LIDOCAINE 2% INJ 100 MG/5 ML SDV (FOR ANES.) As Ordered ONE (14:37)
--- NOTE | 2017-01-17 14:38 | ROOR ---
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 No Referring Physician 1. No Referring Physician, Admin. Requesting Provider: Medicines: Propofol per Anesthesia Complications: No immediate complications. Procedure: Pre-Anesthesia Assessment: - Prior to the procedure, a History and Physical was performed, and patient medications and allergies were reviewed. The patient is competent. The risks and benefits of the procedure and the sedation options and risks were discussed with the patient. All questions were answered and informed consent was obtained. Patient identification and proposed procedure were verified by the physician and the nurse in the pre-procedure area and in the procedure room. Mental Status Examination: alert and oriented. Airway Examination: normal oropharyngeal airway and neck mobility. Respiratory Examination: clear to auscultation. CV Examination: normal. ASA Grade Assessment: III - A patient with severe systemic disease. After reviewing the risks and benefits, the patient was deemed in satisfactory condition to undergo the procedure. The anesthesia plan was to use moderate sedation / analgesia (conscious sedation). Immediately prior to administration of medications, the patient was re-assessed for adequacy to receive sedatives. The heart rate, respiratory rate, oxygen saturations, blood pressure, adequacy of pulmonary ventilation, and response to care were monitored throughout the procedure. The physical status of the patient was re-assessed after the procedure. The Endoscope was introduced through the mouth, and advanced to the second part of duodenum. The upper GI endoscopy was accomplished without difficulty. The patient tolerated the procedure well. Findings: The upper third of the esophagus, middle third of the esophagus and lower third of the esophagus were normal. Patchy moderate inflammation characterized by congestion (edema), erythema, friability and granularity was found in the gastric antrum. The cardia, gastric fundus and gastric body were normal. Patchy moderate inflammation characterized by congestion (edema), erythema, friability and granularity was found in the duodenal bulb and in the first portion of the duodenum. The second portion of the duodenum was normal. Impression: - Normal upper third of esophagus, middle third of esophagus and lower third of esophagus. - Gastritis. - Normal cardia, gastric fundus and gastric body. - Duodenitis. - Normal second portion of the duodenum. - No specimens collected. Recommendation: - [facility] for possible discharge same day. Nic Elias MD Nic Elias Jr, MD 01/17/2017 2:38:13 PM This report has been signed electronically. Number of Addenda: 0 Note Initiated On: 01/17/2017 2:31 PM Estimated Blood Loss: Estimated blood loss: none.
[2017-01-17] MEDS ORDERED: PHENYLephrine HCL 500 MCG/5 ML (100MCG/ML) SYRINGE (J2370) As Ordered ONE (14:47)
--- NOTE | 2017-01-17 14:59 | ROOR ---
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 No Referring Physician 1. No Referring Physician, Admin. Requesting Provider: Medicines: Propofol per Anesthesia Complications: No immediate complications. Procedure: Pre-Anesthesia Assessment: - Prior to the procedure, a History and Physical was performed, and patient medications and allergies were reviewed. The patient is competent. The risks and benefits of the procedure and the sedation options and risks were discussed with the patient. All questions were answered and informed consent was obtained. Patient identification and proposed procedure were verified by the physician and the nurse in the pre-procedure area and in the procedure room. Mental Status Examination: alert and oriented. Airway Examination: normal oropharyngeal airway and neck mobility. Respiratory Examination: clear to auscultation. CV Examination: normal. ASA Grade Assessment: III - A patient with severe systemic disease. After reviewing the risks and benefits, the patient was deemed in satisfactory condition to undergo the procedure. The anesthesia plan was to use moderate sedation / analgesia (conscious sedation). Immediately prior to administration of medications, the patient was re-assessed for adequacy to receive sedatives. The heart rate, respiratory rate, oxygen saturations, blood pressure, adequacy of pulmonary ventilation, and response to care were monitored throughout the procedure. The physical status of the patient was re-assessed after the procedure. The Colonoscope was introduced through the anus and advanced to the ileocecal valve. The colonoscopy was performed with moderate difficulty due to significant looping. Successful completion of the procedure was aided by using manual pressure, withdrawing and reinserting the scope and straightening and shortening the scope to obtain bowel loop reduction. Findings: The perianal and digital rectal examinations were normal. Pertinent negatives include normal sphincter tone, no palpable rectal lesions and no anal lesion or abnormality was detected. A few small-mouthed diverticula were found in the sigmoid colon. The rectum, recto-sigmoid colon, descending colon, transverse colon and ascending colon appeared normal. Impression: - Diverticulosis in the sigmoid colon. - The rectum, recto-sigmoid colon, descending colon, transverse colon and ascending colon are normal. - No specimens collected. Recommendation: - Return [facility] to [facility] for possible discharge same day. Nic Elias MD Nic Elias Jr, MD 01/17/2017 2:59:28 PM This report has been signed electronically. Number of Addenda: 0 Note Initiated On: 01/17/2017 2:30 PM Estimated Blood Loss: Estimated blood loss: none.
[2017-01-18] MEDS: OCTREOTIDE ACETATE 100 MCG/ML VIAL (J2354) SC SCH (05:37)
[2017-01-18 06:00] VITALS: BP 102/73
[2017-01-18 06:11] LABS: MEAN CORPUSCULAR HEMOGLOBIN 30.1 pg (27.0-33.0); MEAN CORPUSCULAR HGB CONC 33.1 g/dl (32.0-36.5); MEAN CORPUSCULAR VOLUME 91.2 fl (80.0-96.0); RED CELL DISTRIBUTION WIDTH 15.5 % (11.5-14.5); WHITE BLOOD COUNT 4.8 K/mm3 (4.0-10.0)
[2017-01-18 06:22] LABS: ANION GAP 8 MEQ/L (8-16); BLOOD UREA NITROGEN 4 MG/DL (7-18); CARBON DIOXIDE LEVEL 30 MEQ/L (21-32); CHLORIDE LEVEL 108 MEQ/L (98-107); CREATININE FOR GFR 0.79 MG/DL (0.70-1.30); GLOMERULAR FILTRATION RATE > 60.0 (>49); GLUCOSE, FASTING 124 MG/DL (80-110); POTASSIUM SERUM 3.5 MEQ/L (3.5-5.1); SODIUM LEVEL 146 MEQ/L (136-145)
[2017-01-18] MEDS: ATORVASTATIN 20 MG TAB PO SCH (08:34)
[2017-01-18] MEDS: PANTOPRAZOLE 40MG INJ (PROTONIX) (C9113) IV SCH (08:34)
[2017-01-18] MEDS: DOCUSATE SODIUM 100 MG CAP PO SCH (08:34)
[2017-01-18] MEDS: NICOTINE 21MG/24HR 1 EA TRANSDERMAL TD SCH (08:34)
[2017-01-18] MEDS ORDERED: ASPI81TA85 PO (08:47)
[2017-01-18] MEDS ORDERED: COLA100C PO (08:47)
[2017-01-18] MEDS ORDERED: IRON65TA PO (08:47)
[2017-01-18] MEDS ORDERED: PANT40TA2 PO (08:47)
[2017-01-18] MEDS ORDERED: SUCR1TA PO (08:47)
--- NOTE | 2017-01-18 21:35 | EDDOCDS ---
Physician Documentation [facility] Name: Fred Riggs Age: 66 yrs Sex: Male : 1950 Arrival Date: 01/15/2017 Time: 13:03 Bed Admit Hold Private MD: Nestor Franco H. Disposition: 01/15 18:29 Critical Care:. pc Disposition: 01/15/17 18:32 Hospitalization ordered by Cira Ayala for Inpatient Admission. Preliminary diagnosis are Gastrointestinal hemorrhage, unspecified - Lower, Cardiac murmur, unspecified, Anemia, unspecified - severe, symptomatic. - Bed requested for M PCU. - Status is Inpatient Admission. sls1 - Condition is Stable. - Problem is new. - Symptoms have improved. HPI: 14:56 This 66 yrs old Other Male presents to ER via Wheelchair with complaints of Dizziness. pc 14:56 The history is obtained from the patient. He has had abdominal cramping and diarrhea pc for 36 hours. He had an episode of diarrhea at work and felt weak afterwards. He says he has occasional blood in his stool but does not describe balbina blood. 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 It lasted less than 5 seconds and has not recurred. He denies any headaches, fevers or chills. The patient has not experienced similar symptoms in the past. The patient has not recently seen a physician. Historical: - Allergies: PENICILLINS; - Home Meds: 1. Plavix 300 mg Oral tab daily (Last dose: 01/15/2017) 2. Lipitor 20 mg oral tab 1 tab once daily (Last dose: 01/15/2017) 3. aspirin 325 mg Oral tab 1 tab once daily (Last dose: 01/15/2017) - PMHx: Heart Murmer; CAD; [place]; cancer, throat; - PSHx: Angioplasty (January 2015); Portocath placement and removal; feeding tube placement and removal; - The history from nurses notes was reviewed: and I agree with what is documented. - Social history: Smoking status: Patient uses tobacco products, heavy tobacco smoker. No barriers to communication noted. - : The pt / caregiver states he / she is on anticoagulants: Plavix. Home medication list is obtained from the patient. - Hospitalizations: : No recent hospitalization is reported. - Exposure Risk Screening:: None identified. - Immunization history:: All immunizations up-to-date. - Family history: Not pertinent. - Social history:: the patient smokes cigarettes 1ppd the patient drinks alcohol, socially. ROS: 14:56 MS/Skin/Lymph: chronic calf claudication. pc 14:56 All systems are negative except as listed. Exam: 14:56 General Appearance: no acute distress, alert. pc 14:56 EENT: normal eye inspection, ears, nose and throat normal, pharynx normal, mucous membranes moist 14:56 Neck: The exam reveals no acute abnormalities. ROM is normal and painless. No nuchal rigidity is noted.. 14:56 Respiratory: no respiratory distress, normal breath sounds. 14:56 CVS: regular pulse rate, regular rhythm, strong peripheral pulses, normal capillary refill, there is a murmur, systolic, grade 2 out of 6. 14:56 Abdomen: soft, non-tender, no organomegaly, bowel sounds hyperactive. 14:56 Back: normal inspection. 14:56 Skin: skin color is normal, warm, dry. 14:56 Extremities: The extremities have a grossly normal appearance, are non-tender, without acute ROM abnormalities. 14:56 Neuro: oriented x 3, cranial nerves normal as tested, no motor deficits, no sensory deficits. 14:56 Psych: normal mood. Vital Signs: 13:04 BP 106 / 60; Pulse 85; Resp 18; Temp 97.6(O); Pulse Ox 100% on R/A; Weight 81.65 kg / ct3 180.01 lbs (R); Height 5 ft. 5 in. (165.10 cm) (R); Pain 0/10; 19:10 BP 104 / 60 (auto/); ld5 19:11 Pulse 82 MON; Pulse Ox 98% ; ld5 19:19 BP 98 / 61 (auto/); ld5 19:19 Pulse 78 MON; Pulse Ox 96% ; ld5 19:49 BP 103 / 56 (auto/); ld5 19:49 Pulse 82 MON; Pulse Ox 93% ; ld5 19:55 Resp 16; Temp 97.2; Pain 0/10; ld5 20:19 BP 117 / 59 (auto/); ld5 20:19 Pulse 80 MON; Pulse Ox 97% ; ld5 20:45 Temp 98; ld5 20:49 BP 112 / 59 (auto/); ld5 20:49 Pulse 86 MON; Pulse Ox 96% ; ld5 21:19 Pulse 84 MON; Pulse Ox 96% ; ld5 21:19 BP 109 / 62 (auto/); Resp 16; Temp 97.4; Pain 0/10; ld5 21:40 BP 105 / 55 (auto/); ld5 21:40 Pulse 84 MON; Pulse Ox 95% ; ld5 21:49 BP 108 / 57 (auto/); ld5 21:49 Pulse 82 MON; Pulse Ox 95% ; ld5 13:04 Body Mass Index 29.95 (81.65 kg, 165.10 cm) ct3 MDM: 13:32 Accucheck ordered. cjh 13:33 ECG WITH READING ER PHYS+CARDIAG ordered. EDMS 13:47 Fingerstick Blood Sugar Ordered. EDMS 14:44 IV Saline Lock ordered. pc 14:45 Fingerstick Blood Sugar Reviewed. pc 14:45 Stool samples ordered. pc 14:46 CBC with Diff Ordered. EDMS 14:46 MED Profile Ordered. EDMS 14:56 Differential Diagnosis: diarrheal illness, brief episode of dizziness - resolved, CAD, pc PAD. Plan: labs. 15:38 CBC with Diff Reviewed. pc 15:38 MED Profile Reviewed. pc 15:40 Type & Screen Ordered. EDMS 15:41 Financial registration complete. gjb 15:59 BED REQUEST+ADM ordered. EDMS 16:05 LIVER PROFILE Ordered. EDMS 16:08 [facility] Payment Agreement was scanned into [employer] and attached to record. gjb 16:12 MED Profile Reviewed. pc 16:30 MED Profile Reviewed. pc 16:30 LIVER PROFILE Reviewed. pc 16:33 CT ABD & PELVIS: IV and Oral Contrast Ordered. EDMS 17:13 Diatrizoate Meglumine & Sodium Liquid 10 ml PO once; mix in 290cc of water ordered. bcj 17:54 Diatrizoate Meglumine & Sodium Liquid 10 ml PO once; mix in 290cc of water ordered. bcj 18:13 Type & Screen Reviewed. pc 18:15 Transfuse PRBC's 2 units, ensure PRBCs ordered in lab ordered. pc 18:16 Type and Cross, Packed Cells Ordered. EDMS 18:29 Data reviewed: old medical records, vital signs, nurses notes, lab test results. Test pc interpretation: LAB - all labs as ordered have been reviewed, interpreted and considered in the overall management of the clinical presentation;. The patient has been re-examined and re-evaluated. The patient's symptoms have mildly improved after treatment. Physician consultation: Dr. Nic Elias MD regarding patient's condition, and he requests the CT as ordered and will see in consult . 18:29 Physician consultation: Dr. Cira Ayala regarding admission. Disposition: The historical pc points, examination findings, and any diagnostic results supporting the provided diagnosis, were discussed with the patient or legal guardian. The need for further work-up and/or treatment in the hospital was explained. 19:59 Admission / Observation Status ordered. EDMS 19:59 GASTROINTESTINAL (GI) PANEL Ordered. EDMS 20:02 HEMOGLOBIN & HEMATOCRIT Ordered. EDMS 20:02 COMPLETE BLOOD COUNT Ordered. EDMS 20:02 BASIC METABOLIC PROFILE Ordered. EDMS 20:11 HEMOGLOBIN A1C Ordered. EDMS 02 03:47 PACKED CELLS Ordered. EDMS 07:52 HEMOGLOBIN & HEMATOCRIT Ordered. EDMS 07:52 HEMOGLOBIN & HEMATOCRIT Ordered. EDMS 09:57 CLEAR LIQUIDS DIET ordered. EDMS 10:00 NPO DIET ordered. EDMS 19:31 HEMOGLOBIN & HEMATOCRIT Ordered. EDMS 19:31 COMPLETE BLOOD COUNT Ordered. EDMS 19:31 BASIC METABOLIC PROFILE Ordered. EDCT Point of Care Testing: Blood Glucose: 01/15 14:17 Blood Glucose: 123 mg/dL; [facility] [place]: Administered Medications: 07:45 Drug: Diatrizoate Meglumine & Sodium 10 ml [diatrizoate meglumine and diat.sodium 66 bcj %-10 % oral solution (10 mL)] Route: PO; 17:13 Drug: Diatrizoate Meglumine & Sodium 10 ml [diatrizoate meglumine and diat.sodium 66 bcj %-10 % oral solution (10 mL)] Route: PO; Critical Care Time: 18:29 Critical care time: Bedside Care: 25 minutes, Consultation: 20 minutes, Family pc Intervention: 15 minutes. Total time: 60 minutes Signatures: Dispatcher [employer] HAMZAHCT Jorge Bonilla MD MD pc Johnson, Bruce, RN RN bcj Quesenberry HC, Deborah, RN RN daq Strong, Shannon, RN RN [id number] Adriana Li RN RN [facility] Neel Gaitan RN RN Eri Iqbal The chart was reviewed and I authenticate all verbal orders and agree with the evaluation and treatment provided.Corrections: (The following items were deleted from the chart) 13:43 13:34 PMHx: cancer, lung; [facility] 16:05 15:41 LIVER PROFILE+LAB ordered. EDMS EDMS 18:22 18:19 TYPE & SCREEN ordered. EDMS EDMS 19:59 19:59 GASTROINTESTINAL (GI) PANEL ordered. EDMS EDMS 19:59 19:59 GASTROINTESTINAL (GI) PANEL ordered. EDMS EDMS 01/16 04:05 03:49 TYPE & SCREEN ordered. EDMS EDMS 09:57 01/15 19:59 NPO DIET ordered. EDMS EDMS 01/16 09:59 09:57 NPO FOR TEST/PROCEDURE ordered. EDMS EDMS : 01/15 16:08 [facility] Payment Agreement vi Chart Complete MTDD
--- NOTE | 2017-01-18 21:35 | EDDOCDS ---
Nurse's Notes [facility] Name: Fred Dave Age: 66 yrs Sex: Male : 1950 Arrival Date: 01/15/2017 Time: 13:03 Bed Admit Hold Private MD: Nestor Franco H. Diagnosis: Gastrointestinal hemorrhage, unspecified-Lower;Cardiac murmur, unspecified;Anemia, unspecified-severe, symptomatic Presentation: 01/15 13:15 Presenting complaint: Patient states: stomach cramps and diarrhea started last Saturday, [facility] today noted cramping in legs on both sides in back, couldn't stay at work walking on concrete, then daughter took him to Urgent Care and they told him to come here after doing negative flu swab, negative strep and an EKG showing Sinus Rhythm with LVH, has a history of blood clots, had one behind his chemo port just finished unknown blood thinner in addition to Plavix which has been on for years. Here today for cramping pain in legs and daughter feels he is pale. Daughter states home fingersitck 166 at 100 even though didn't eat since 5am. Patient also states diarrhea has been red and bloody. Adult Sepsis Screening: The patient does not have new or worsening altered mentation. Patient's respiratory rate is less than 22. Systolic blood pressure is greater than 100. Patient has a qSOFA score of 0- Negative Sepsis Screen. Suicide/Homicide risk assessment- the patient denies having any suicidal and/or homicidal ideations and does not present with any other emotional, behavioral or mental health complaints. Status: Patient is not a director of cardiology service line or dependent. Transition of care: patient was not received from another setting of care. 13:15 Acuity: PAYTON Level 3 [facility] 13:15 Method Of Arrival: Wheelchair [facility] Triage Assessment: 13:24 General: Appears in no apparent distress, comfortable, Behavior is appropriate for age, [facility] cooperative. Pain: Denies pain. HIV screening NA for this visit Offered previously. Neurological: Level of Consciousness is awake, alert, Oriented to person, place, time. Respiratory: Airway is patent Respiratory effort is even, unlabored, Respiratory pattern is regular, symmetrical. GI: Reports cramping, diarrhea. Derm: Skin is pink, warm & dry. Musculoskeletal: Range of motion intact in all extremities. Historical: - Allergies: PENICILLINS; - Home Meds: 1. Plavix 300 mg Oral tab daily (Last dose: 01/15/2017) 2. Lipitor 20 mg oral tab 1 tab once daily (Last dose: 01/15/2017) 3. aspirin 325 mg Oral tab 1 tab once daily (Last dose: 01/15/2017) - PMHx: Heart Murmer; CAD; MS; cancer, throat; - PSHx: Angioplasty (January 2015); Portocath placement and removal; feeding tube placement and removal; - The history from nurses notes was reviewed: and I agree with what is documented. - Social history: Smoking status: Patient uses tobacco products, heavy tobacco smoker. No barriers to communication noted. - : The pt / caregiver states he / she is on anticoagulants: Plavix. Home medication list is obtained from the patient. - Hospitalizations: : No recent hospitalization is reported. - Exposure Risk Screening:: None identified. - Immunization history:: All immunizations up-to-date. - Family history: Not pertinent. - Social history:: the patient smokes cigarettes 1ppd the patient drinks alcohol, socially. Screenin:00 Screening information is obtained from the patient. Fall risk: No risks identified. bcj Assistance ADL's: requires no assistance with activities of daily living. Abuse/DV Screen: The patient / caregiver reports he/she is: not in a situation that causes fear, pain or injury. Nutritional screening: No deficits noted. Advance Directives: Currently, there is no health care proxy. home support is adequate. Assessment: 15:00 General: Appears in no apparent distress, comfortable, Behavior is cooperative. Pain: bcj Denies pain. Respiratory: Airway is patent Respiratory effort is even, unlabored. Derm: Skin is pink, warm & dry. Musculoskeletal: both calves soft non tender. 18:32 General: Appears in no apparent distress, comfortable, Behavior is cooperative. Pain: bcj Denies pain. GI: Abdomen is flat, non- distended. 19:05 General: Appears in no apparent distress, Behavior is appropriate for age, cooperative. ld5 Pain: Denies pain. Neurological: Level of Consciousness is awake, alert, Oriented to person, place, time, Milk Drier are equal bilaterally. Respiratory: Airway is patent Respiratory effort is even, unlabored, Breath sounds are clear bilaterally. Denies shortness of breath at rest, on exertion. GI: Abdomen is non- distended Bowel sounds present X 4 quads. Abd is soft and non tender X 4 quads. Denies nausea, vomiting. Derm: Skin is intact, Skin is dry, Skin is pale. 19:50 General: Pt laying in bed watching TV. Requesting food. This RN explained to pt that we ld5 should have to wait until the Hospitalist sees pt to make a decision regarding food. Pt denies any pain. Tolerating transfusion well. Respirations easy and unlabored. Will continue to monitor. 20:33 General: Appears in no apparent distress, Behavior is cooperative. Pain: Denies pain. ld5 Neurological: Level of Consciousness is awake, obeys commands. Respiratory: Airway is patent Respiratory effort is even, unlabored. 20:45 General: First unit of PRBCs complete. Pt tolerated well. Respirations easy and ld5 unlabored. Will continue to monitor. 21:36 General: Second unit of PRBCs started. Pt aware of signs and symptoms to report to RN ld5 or staff. No apparent distress at this time. Lungs clear bilaterally. Will continue to monitor. 22:30 General: Report given to lasha Heart RN. ld5 01/16 07:00 General: Report taken from night colby nurse. All further charting will be in [address] Vital Signs: 01/15 13:04 BP 106 / 60; Pulse 85; Resp 18; Temp 97.6(O); Pulse Ox 100% on R/A; Weight 81.65 kg ct3 (R); Height 5 ft. 5 in. (165.10 cm) (R); Pain 0/10; 19:10 BP 104 / 60 (auto/); ld5 19:11 Pulse 82 MON; Pulse Ox 98% ; ld5 19:19 BP 98 / 61 (auto/); ld5 19:19 Pulse 78 MON; Pulse Ox 96% ; ld5 19:49 BP 103 / 56 (auto/); ld5 19:49 Pulse 82 MON; Pulse Ox 93% ; ld5 19:55 Resp 16; Temp 97.2; Pain 0/10; ld5 20:19 BP 117 / 59 (auto/); ld5 20:19 Pulse 80 MON; Pulse Ox 97% ; ld5 20:45 Temp 98; ld5 20:49 BP 112 / 59 (auto/); ld5 20:49 Pulse 86 MON; Pulse Ox 96% ; ld5 21:19 Pulse 84 MON; Pulse Ox 96% ; ld5 21:19 BP 109 / 62 (auto/); Resp 16; Temp 97.4; Pain 0/10; ld5 21:40 BP 105 / 55 (auto/); ld5 21:40 Pulse 84 MON; Pulse Ox 95% ; ld5 21:49 BP 108 / 57 (auto/); ld5 21:49 Pulse 82 MON; Pulse Ox 95% ; ld5 13:04 Body Mass Index 29.95 (81.65 kg, 165.10 cm) ct3 Vitals: 13:04 Log In Time: January 15, 2017 at 13:01. ct3 13:04 RN notified that patient meets Red Flag criteria. ct3 ED Course: 13:04 Patient visited by Jaci Hahn PCA. ct3 13:04 Nestor Franco is Private Physician. ct3 13:04 Patient moved to Waiting ct3 13:12 Patient moved to Pre RCE ct3 13:21 Triage Initiated cjh 13:34 Cherelle Zacarias,ESTELA is Primary Nurse. cjh 13:34 Patient moved to PD2 / 27 cjh 13:37 EKG done. (by ED staff). Reviewed by Jorge Bonilla MD. ar3 13:39 Patient visited by Elin Pantoja PCA. ar3 13:40 Patient moved to Pre RCE ar3 14:12 Patient moved to 17 ar3 14:21 Jorge Bonilla MD is Attending Physician. pc 14:44 Patient visited by Jorge Bonilla MD. pc 15:00 No apparent distress. Resting quietly. awaiting re-evaluation by ER physician. bcj 15:00 The patient / caregiver is instructed regarding the plan of care and ED course. bcj 15:00 Inserted saline lock: 20 gauge in left antecubital area. Labs drawn. (by ED staff). bcj Sent per order to lab. 15:03 Patient visited by Paulino Palumbo RN. bcj 16:08 [facility] Payment Agreement was scanned into [employer] and attached to record. gjb 16:52 Patient visited by Paulino Palumbo RN. bcj 18:25 Cira Ayala supervisor facepiece line. ys2 18:29 Patient visited by Jorge Bonilla MD. pc 18:31 Cira Ayala is Hospitalizing Provider. pc 18:32 Resting quietly. Awaiting bed assignment. bcj 18:32 Patient has correct armband on for positive identification. Placed in gown. Bed in low bcj position. Call light in reach. Adult w/ patient. 18:32 IV is intact. bcj 18:33 Patient visited by Paulino Palumbo, RN. bcj 19:01 Primary Nurse role handed off by Cherelle Zacarias,RN kr3 19:20 CT ABD & PELVIS: IV and Oral Contrast Returned. EDMS 19:21 Patient visited by Blanca Del Rio,ESTELA. ld5 20:20 Patient visited by Blanca Del Rio,ESTELA. ld5 20:24 Patient moved to Admit Hold ml3 21:39 Patient visited by Blanca Del Rio,ESTELA. ld5 22:10 Patient visited by Blanca Del Rio,ESTELA. ld5 02 08:51 EKG-ADULT Returned. EDMS Administered Medications: 01/15 07:45 Drug: Diatrizoate Meglumine & Sodium 10 ml [diatrizoate meglumine and diat.sodium 66 bcj %-10 % oral solution (10 mL)] Route: PO; 17:13 Drug: Diatrizoate Meglumine & Sodium 10 ml [diatrizoate meglumine and diat.sodium 66 bcj %-10 % oral solution (10 mL)] Route: PO; Point of Care Testing: Blood Glucose: 14:17 Blood Glucose: 123 mg/dL; [facility] Ranges: Order Results: Lab Order: Fingerstick Blood Sugar; SPEC'M 01/15/17 13:39 Test: BEDSIDE GLUCOSE; Value: 123; Range: 80-115; Abnormal: Above high normal; Units: MG/DL; Status: F Lab Order: CBC with Diff; SPEC'M 01/15/17 14:56 Test: WHITE BLOOD COUNT; Value: 5.8; Range: 4.0-10.0; Units: K/mm3; Status: F Test: RED BLOOD COUNT; Value: 1.90; Range: 4.30-6.10; Abnormal: Below low normal; Units: M/mm3; Status: F Test: HEMOGLOBIN; Value: 5.7; Range: 14.0-18.0; Abnormal: Critical Low; Units: g/dl; Status: F Test: HEMATOCRIT; Value: 17.4; Range: 42.0-52.0; Abnormal: Below low normal; Units: %; Status: F Test: MEAN CORPUSCULAR VOLUME; Value: 91.2; Range: 80.0-96.0; Units: fl; Status: F Test: MEAN CORPUSCULAR HEMOGLOBIN; Value: 29.8; Range: 27.0-33.0; Units: pg; Status: F Test: MEAN CORPUSCULAR HGB CONC; Value: 32.7; Range: 32.0-36.5; Units: g/dl; Status: F Test: RED CELL DISTRIBUTION WIDTH; Value: 16.5; Range: 11.5-14.5; Abnormal: Above high normal; Units: %; Status: F Test: PLATELET COUNT, AUTOMATED; Value: 185; Range: 150-450; Units: k/mm3; Status: F Test: NEUTROPHILS %; Value: 71.8; Range: 36.0-66.0; Abnormal: Above high normal; Units: %; Status: F Test: LYMPH %; Value: 15.3; Range: 24.0-44.0; Abnormal: Below low normal; Units: %; Status: F Test: MONO %; Value: 6.9; Range: 0.0-5.0; Abnormal: Above high normal; Units: %; Status: F Test: EOS %; Value: 3.7; Range: 0.0-3.0; Abnormal: Above high normal; Units: %; Status: F Test: BASO %; Value: 0.5; Range: 0.0-1.0; Units: %; Status: F Test: LARGE UNSTAINED CELL %; Value: 1.8; Range: 0.0-4.0; Units: %; Status: F Test: NEUTROPHILS #; Value: 4.2; Range: 1.8-7.7; Units: K/mm3; Status: F Test: LYMPH #; Value: 1.0; Range: 1.5-4.5; Abnormal: Below low normal; Units: K/mm3; Status: F Test: MONO #; Value: 0.4; Range: 0.0-0.8; Units: K/mm3; Status: F Test: EOS #; Value: 0.2; Range: 0.0-0.50; Units: K/mm3; Status: F Test: BASO #; Value: 0.0; Range: 0.0-0.2; Units: K/mm3; Status: F Test: LARGE UNSTAINED CELL #; Value: 0.1; Range: 0.0-0.4; Units: K/mm3; Status: F Lab Order: MED Profile; [facility]' 01/15/17 14:56 Test: GLUCOSE, FASTING; Value: 106; Range: 80-110; Units: MG/DL; Status: F Test: BLOOD UREA NITROGEN; Value: 21; Range: 7-18; Abnormal: Above high normal; Units: MG/DL; Status: F Test: CREATININE FOR GFR; Value: 0.91; Range: 0.70-1.30; Units: MG/DL; Status: F Test: GLOMERULAR FILTRATION RATE; Value: > 60.0; Range: >49; Status: F Test: SODIUM LEVEL; Value: 141; Range: 136-145; Units: MEQ/L; Status: F Test: POTASSIUM SERUM; Value: 3.9; Range: 3.5-5.1; Units: MEQ/L; Status: F Test: CHLORIDE LEVEL; Value: 109; Range: 98-107; Abnormal: Above high normal; Units: MEQ/L; Status: F Test: CARBON DIOXIDE LEVEL; Value: 24; Range: 21-32; Units: MEQ/L; Status: F Test: ANION GAP; Value: 8; Range: 8-16; Units: MEQ/L; Status: F Test: CALCIUM LEVEL; Value: 7.9; Range: 8.8-10.2; Abnormal: Below low normal; Units: MG/DL; Status: F Test Note: ; Units are mL/min/1.73 m2 Chronic Kidney Disease Staging per NKF: Stage I & II GFR >=60 Normal to Mildly Decreased Stage III GFR 30-59 Moderately Decreased Stage IV GFR 15-29 Severely Decreased Stage V GFR <15 Very Little GFR Left ESRD GFR <15 on FISHER CRAB Lab Order: Type & Screen; [facility] 01/15/17 16:24 Test: BLOOD TYPE; Value: A POS; Status: F Test: AB SCREEN (INDIRECT LENARD)VIS; Value: NEGATIVE; Status: F Lab Order: LIVER PROFILE; [facility] 01/15/17 14:56 Test: AST/SGOT; Value: 10; Range: 15-37; Abnormal: Below low normal; Units: U/L; Status: F Test: ALT/SGPT; Value: 12; Range: 12-78; Units: U/L; Status: F Test: ALKALINE PHOSPHATASE; Value: 44; Range: 45-117; Abnormal: Below low normal; Units: U/L; Status: F Test: BILIRUBIN,TOTAL; Value: 0.4; Range: 0.2-1.0; Units: MG/DL; Status: F Test: BILIRUBIN,DIRECT; Value: < 0.1; Range: 0.0-0.2; Units: MG/DL; Status: F Test: TOTAL PROTEIN; Value: 5.7; Range: 6.4-8.2; Abnormal: Below low normal; Units: GM/DL; Status: F Test: ALBUMIN; Value: 3.1; Range: 3.2-5.2; Abnormal: Below low normal; Units: GM/DL; Status: F Test: ALBUMIN/GLOBULIN RATIO; Value: 1.19; Range: 1.00-1.93; Status: F Lab Order: HEMOGLOBIN & HEMATOCRIT; [facility] 01/16/17 00:01 Test: HEMOGLOBIN; Value: 7.9; Range: 14.0-18.0; Units: g/dl; Status: F Test: HEMATOCRIT; Value: 23.8; Range: 42.0-52.0; Abnormal: Below low normal; Units: %; Status: F Lab Order: COMPLETE BLOOD COUNT; [facility] 01/16/17 07:18 Test: WHITE BLOOD COUNT; Value: 4.4; Range: 4.0-10.0; Units: K/mm3; Status: F Test: RED BLOOD COUNT; Value: 2.89; Range: 4.30-6.10; Abnormal: Below low normal; Units: M/mm3; Status: F Test: HEMOGLOBIN; Value: 8.8; Range: 14.0-18.0; Abnormal: Below low normal; Units: g/dl; Status: F Test: HEMATOCRIT; Value: 26.0; Range: 42.0-52.0; Abnormal: Below low normal; Units: %; Status: F Test: MEAN CORPUSCULAR VOLUME; Value: 89.9; Range: 80.0-96.0; Units: fl; Status: F Test: MEAN CORPUSCULAR HEMOGLOBIN; Value: 30.5; Range: 27.0-33.0; Units: pg; Status: F Test: MEAN CORPUSCULAR HGB CONC; Value: 33.9; Range: 32.0-36.5; Units: g/dl; Status: F Test: RED CELL DISTRIBUTION WIDTH; Value: 15.6; Range: 11.5-14.5; Abnormal: Above high normal; Units: %; Status: F Test: PLATELET COUNT, AUTOMATED; Value: 147; Range: 150-450; Abnormal: Below low normal; Units: k/mm3; Status: F Lab Order: BASIC METABOLIC PROFILE; [facility]01/16/17 07:18 Test: GLUCOSE, FASTING; Value: 120; Range: 80-110; Abnormal: Above high normal; Units: MG/DL; Status: F Test: BLOOD UREA NITROGEN; Value: 12; Range: 7-18; Units: MG/DL; Status: F Test: CREATININE FOR GFR; Value: 0.89; Range: 0.70-1.30; Units: MG/DL; Status: F Test: GLOMERULAR FILTRATION RATE; Value: > 60.0; Range: >49; Status: F Test: SODIUM LEVEL; Value: 142; Range: 136-145; Units: MEQ/L; Status: F Test: POTASSIUM SERUM; Value: 3.7; Range: 3.5-5.1; Units: MEQ/L; Status: F Test: CHLORIDE LEVEL; Value: 109; Range: 98-107; Abnormal: Above high normal; Units: MEQ/L; Status: F Test: CARBON DIOXIDE LEVEL; Value: 28; Range: 21-32; Units: MEQ/L; Status: F Test: ANION GAP; Value: 5; Range: 8-16; Abnormal: Below low normal; Units: MEQ/L; Status: F Test: CALCIUM LEVEL; Value: 7.9; Range: 8.8-10.2; Abnormal: Below low normal; Units: MG/DL; Status: F Test Note: ; Units are mL/min/1.73 m2 Chronic Kidney Disease Staging per NKF: Stage I & II GFR >=60 Normal to Mildly Decreased Stage III GFR 30-59 Moderately Decreased Stage IV GFR 15-29 Severely Decreased Stage V GFR <15 Very Little GFR Left ESRD GFR <15 on FISHER CRAB Lab Order: HEMOGLOBIN A1C; [facility] 01/16/17 07:18 Test: HEMOGLOBIN A1c; Value: 5.8; Range: 4.5-6.2; Units: %; Status: F Test: ESTIMATED AVERAGE GLUCOSE; Value: 120; Range: 60-110; Abnormal: Above high normal; Units: MG/DL; Status: F Lab Order: HEMOGLOBIN & HEMATOCRIT; [facility] 01/16/17 11:54 Test: HEMOGLOBIN; Value: 8.1; Range: 14.0-18.0; Abnormal: Below low normal; Units: g/dl; Status: F Test: HEMATOCRIT; Value: 24.3; Range: 42.0-52.0; Abnormal: Below low normal; Units: %; Status: F Lab Order: HEMOGLOBIN & HEMATOCRIT; [facility] 01/16/17 17:47 Test: HEMOGLOBIN; Value: 8.3; Range: 14.0-18.0; Abnormal: Below low normal; Units: g/dl; Status: F Test: HEMATOCRIT; Value: 25.5; Range: 42.0-52.0; Abnormal: Below low normal; Units: %; Status: F Radiology Order: EKG-ADULT Test: EKG-ADULT REASON FOR EXAMINATION: dizzyness; Stationary ECG Study; [facility] - ED; ; Test Date: 2017-01-15; Pat Name: FRED DAVE Department:; Room: -; Gender: M 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; : 1950 Requested By: Jorge Kidd; Order Number: [id number] Reading MD: Jorge Bonilla; Measurements; Intervals [place]; Rate: 82 P: 77; LA: 167 QRS: 31; QRSD: 94 T: 56; QT: 346; QTc: 406; Interpretive Statements; SINUS RHYTHM; INCOMPLETE RIGHT BUNDLE BRANCH BLOCK; NO PRIORS; Electronically Signed On 01-16-2017 8:33:32 EST by Jorge Bonilla; Radiology Order: CT ABD & PELVIS: IV and Oral Contrast Test: CT ABD & PELVIS: IV and Oral Contrast REASON FOR EXAMINATION: LGI bleed r/o mass or diverticular bleeed; Clinical: Hematochezia.; ; Technique: Axial contrast enhanced images from the lung bases to the pubic; symphysis using oral and 100 ml Isovue 370 intravenous contrast material with; coronal and sagittal re-formations.; ; Comparison: 07/23/2011.; ; Findings:; Lung bases are clear.; Liver, spleen, pancreas, gallbladder, and bilateral adrenal glands appear normal.; Nonobstructing intrarenal calculi and/or renovascular calcifications are; appreciated along with right cortical cysts measuring up to 2 cm and lower pole; hydronephrosis which is likely chronic and without obvious cause for obstruction.; The enteric system is without obstruction or acute inflammatory process. No; significant diverticulosis or mass lesion is appreciated involving the small or; large bowel. Pelvis demonstrates distended bladder and age appropriate; prostate/seminal vesicles. No ascites. No free air. No intraperitoneal or; retroperitoneal adenopathy. Atherosclerotic changes of the aorta and vasculature; noted without aneurysm. Surrounding musculoskeletal structures demonstrate; degenerative changes.; ; Impression:; 1. Kidneys demonstrate renovascular calcifications and possible nonobstructing; renal calculi. There is evidence for mild chronic-appearing hydronephrosis; involving the lower pole right kidney without obvious obstructing cause.; 2. The enteric system is unremarkable.; 3. No further acute intra-abdominal or pelvic pathology appreciated.; ; ; Signed by; Kemal Holder MD 01/15/2017 06:36 P; Outcome: 18:32 Decision to Hospitalize by Provider. 01/16 20:34 Patient left the ED. sls1 Signatures: Dispatcher [employer] EDMS Jorge Bonilla MD MD pc Johnson, Bruce, RN RN Brigitte Livingston, Fuel Cell Designer Unit ml3 Cherelle ZacariasRN RN kr3 Elin Pantoja, WILDLIFE SCIENCE PROFESSOR WILDLIFE SCIENCE PROFESSOR ar3 Blanca Del Rio,RN RN ld5 Jaci Hahn, WILDLIFE SCIENCE PROFESSOR WILDLIFE SCIENCE PROFESSOR ct3 Shelia Vasquez RN RN sls1 Adriana Li RN RN [facility] Kimmie Lindsay RN RN [id number] Eri Cohn Cira Ayala ys2 Corrections: (The following items were deleted from the chart) 01/15 13:28 13:15 Presenting complaint: Patient states: stomach cramps and diarrhea started last [facility] Saturday, today noted cramping in legs on both sides in back, couldn't stay at work walking on concrete, then daughter took him to Urgent Care and they told him to come here after doing negative flu swab, negative strep and an EKG showing Sinus Rhythm with LVH, has a history of blood clots, had one behind his chemo port just finished unknown blood thinner in addition to Plavix which has been on for years. Here today for cramping pain in legs and daughter feels he is pale [facility] 13:43 13:34 PMHx: cancer, lung; [facility] 21:38 21:19 BP 109 / 62 Auto; ld5 ld5 Chart Complete MTDD
--- NOTE | 2017-01-18 21:35 | EDDOCDS ---
Physician Documentation [facility] Name: Fred Riggs Age: 66 yrs Sex: Male : 1950 Arrival Date: 01/15/2017 Time: 13:03 Bed Admit Hold Private MD: Nestor Franco H. Disposition: 01/15 18:29 Critical Care:. pc Disposition: 01/15/17 18:32 Hospitalization ordered by Cira Ayala for Inpatient Admission. Preliminary diagnosis are Gastrointestinal hemorrhage, unspecified - Lower, Cardiac murmur, unspecified, Anemia, unspecified - severe, symptomatic. - Bed requested for M PCU. - Status is Inpatient Admission. sls1 - Condition is Stable. - Problem is new. - Symptoms have improved. HPI: 14:56 This 66 yrs old Other Male presents to ER via Wheelchair with complaints of Dizziness. pc 14:56 The history is obtained from the patient. He has had abdominal cramping and diarrhea pc for 36 hours. He had an episode of diarrhea at work and felt weak afterwards. He says he has occasional blood in his stool but does not describe balbina blood. 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 It lasted less than 5 seconds and has not recurred. He denies any headaches, fevers or chills. The patient has not experienced similar symptoms in the past. The patient has not recently seen a physician. Historical: - Allergies: PENICILLINS; - Home Meds: 1. Plavix 300 mg Oral tab daily (Last dose: 01/15/2017) 2. Lipitor 20 mg oral tab 1 tab once daily (Last dose: 01/15/2017) 3. aspirin 325 mg Oral tab 1 tab once daily (Last dose: 01/15/2017) - PMHx: Heart Murmer; CAD; NE; cancer, throat; - PSHx: Angioplasty (January 2015); Portocath placement and removal; feeding tube placement and removal; - The history from nurses notes was reviewed: and I agree with what is documented. - Social history: Smoking status: Patient uses tobacco products, heavy tobacco smoker. No barriers to communication noted. - : The pt / caregiver states he / she is on anticoagulants: Plavix. Home medication list is obtained from the patient. - Hospitalizations: : No recent hospitalization is reported. - Exposure Risk Screening:: None identified. - Immunization history:: All immunizations up-to-date. - Family history: Not pertinent. - Social history:: the patient smokes cigarettes 1ppd the patient drinks alcohol, socially. ROS: 14:56 MS/Skin/Lymph: chronic calf claudication. pc 14:56 All systems are negative except as listed. Exam: 14:56 General Appearance: no acute distress, alert. pc 14:56 EENT: normal eye inspection, ears, nose and throat normal, pharynx normal, mucous membranes moist 14:56 Neck: The exam reveals no acute abnormalities. ROM is normal and painless. No nuchal rigidity is noted.. 14:56 Respiratory: no respiratory distress, normal breath sounds. 14:56 CVS: regular pulse rate, regular rhythm, strong peripheral pulses, normal capillary refill, there is a murmur, systolic, grade 2 out of 6. 14:56 Abdomen: soft, non-tender, no organomegaly, bowel sounds hyperactive. 14:56 Back: normal inspection. 14:56 Skin: skin color is normal, warm, dry. 14:56 Extremities: The extremities have a grossly normal appearance, are non-tender, without acute ROM abnormalities. 14:56 Neuro: oriented x 3, cranial nerves normal as tested, no motor deficits, no sensory deficits. 14:56 Psych: normal mood. Vital Signs: 13:04 BP 106 / 60; Pulse 85; Resp 18; Temp 97.6(O); Pulse Ox 100% on R/A; Weight 81.65 kg / ct3 180.01 lbs (R); Height 5 ft. 5 in. (165.10 cm) (R); Pain 0/10; 19:10 BP 104 / 60 (auto/); ld5 19:11 Pulse 82 MON; Pulse Ox 98% ; ld5 19:19 BP 98 / 61 (auto/); ld5 19:19 Pulse 78 MON; Pulse Ox 96% ; ld5 19:49 BP 103 / 56 (auto/); ld5 19:49 Pulse 82 MON; Pulse Ox 93% ; ld5 19:55 Resp 16; Temp 97.2; Pain 0/10; ld5 20:19 BP 117 / 59 (auto/); ld5 20:19 Pulse 80 MON; Pulse Ox 97% ; ld5 20:45 Temp 98; ld5 20:49 BP 112 / 59 (auto/); ld5 20:49 Pulse 86 MON; Pulse Ox 96% ; ld5 21:19 Pulse 84 MON; Pulse Ox 96% ; ld5 21:19 BP 109 / 62 (auto/); Resp 16; Temp 97.4; Pain 0/10; ld5 21:40 BP 105 / 55 (auto/); ld5 21:40 Pulse 84 MON; Pulse Ox 95% ; ld5 21:49 BP 108 / 57 (auto/); ld5 21:49 Pulse 82 MON; Pulse Ox 95% ; ld5 13:04 Body Mass Index 29.95 (81.65 kg, 165.10 cm) ct3 MDM: 13:32 Accucheck ordered. cjh 13:33 ECG WITH READING ER PHYS+CARDIAG ordered. EDMS 13:47 Fingerstick Blood Sugar Ordered. EDMS 14:44 IV Saline Lock ordered. pc 14:45 Fingerstick Blood Sugar Reviewed. pc 14:45 Stool samples ordered. pc 14:46 CBC with Diff Ordered. EDMS 14:46 MED Profile Ordered. EDMS 14:56 Differential Diagnosis: diarrheal illness, brief episode of dizziness - resolved, CAD, pc PAD. Plan: labs. 15:38 CBC with Diff Reviewed. pc 15:38 MED Profile Reviewed. pc 15:40 Type & Screen Ordered. EDMS 15:41 Financial registration complete. gjb 15:59 BED REQUEST+ADM ordered. EDMS 16:05 LIVER PROFILE Ordered. EDMS 16:08 [facility] Payment Agreement was scanned into [employer] and attached to record. gjb 16:12 MED Profile Reviewed. pc 16:30 MED Profile Reviewed. pc 16:30 LIVER PROFILE Reviewed. pc 16:33 CT ABD & PELVIS: IV and Oral Contrast Ordered. EDMS 17:13 Diatrizoate Meglumine & Sodium Liquid 10 ml PO once; mix in 290cc of water ordered. bcj 17:54 Diatrizoate Meglumine & Sodium Liquid 10 ml PO once; mix in 290cc of water ordered. bcj 18:13 Type & Screen Reviewed. pc 18:15 Transfuse PRBC's 2 units, ensure PRBCs ordered in lab ordered. pc 18:16 Type and Cross, Packed Cells Ordered. EDMS 18:29 Data reviewed: old medical records, vital signs, nurses notes, lab test results. Test pc interpretation: LAB - all labs as ordered have been reviewed, interpreted and considered in the overall management of the clinical presentation;. The patient has been re-examined and re-evaluated. The patient's symptoms have mildly improved after treatment. Physician consultation: Dr. Nic Elias MD regarding patient's condition, and he requests the CT as ordered and will see in consult . 18:29 Physician consultation: Dr. Cira Ayala regarding admission. Disposition: The historical pc points, examination findings, and any diagnostic results supporting the provided diagnosis, were discussed with the patient or legal guardian. The need for further work-up and/or treatment in the hospital was explained. 19:59 Admission / Observation Status ordered. EDMS 19:59 GASTROINTESTINAL (GI) PANEL Ordered. EDMS 20:02 HEMOGLOBIN & HEMATOCRIT Ordered. EDMS 20:02 COMPLETE BLOOD COUNT Ordered. EDMS 20:02 BASIC METABOLIC PROFILE Ordered. EDMS 20:11 HEMOGLOBIN A1C Ordered. EDMS 02 03:47 PACKED CELLS Ordered. EDMS 07:52 HEMOGLOBIN & HEMATOCRIT Ordered. EDMS 07:52 HEMOGLOBIN & HEMATOCRIT Ordered. EDMS 09:57 CLEAR LIQUIDS DIET ordered. EDMS 10:00 NPO DIET ordered. EDMS 19:31 HEMOGLOBIN & HEMATOCRIT Ordered. EDMS 19:31 COMPLETE BLOOD COUNT Ordered. EDMS 19:31 BASIC METABOLIC PROFILE Ordered. EDPR Point of Care Testing: Blood Glucose: 01/15 14:17 Blood Glucose: 123 mg/dL; [facility] Ranges: Administered Medications: 07:45 Drug: Diatrizoate Meglumine & Sodium 10 ml [diatrizoate meglumine and diat.sodium 66 bcj %-10 % oral solution (10 mL)] Route: PO; 17:13 Drug: Diatrizoate Meglumine & Sodium 10 ml [diatrizoate meglumine and diat.sodium 66 bcj %-10 % oral solution (10 mL)] Route: PO; Critical Care Time: 18:29 Critical care time: Bedside Care: 25 minutes, Consultation: 20 minutes, Family pc Intervention: 15 minutes. Total time: 60 minutes Signatures: Dispatcher [employer] HAMZHAPR Jorge Bonilla MD MD pc Johnson, Bruce, RN RN bcj [facility], Deborah, RN RN daq Strong, Shannon, RN RN sls1 Adriana Li RN RN [facility] Neel Gaitan RN RN Eri Iqbal The chart was reviewed and I authenticate all verbal orders and agree with the evaluation and treatment provided.Corrections: (The following items were deleted from the chart) 13:43 13:34 PMHx: cancer, lung; [facility] 16:05 15:41 LIVER PROFILE+LAB ordered. EDMS EDMS 18:22 18:19 TYPE & SCREEN ordered. EDMS EDMS 19:59 19:59 GASTROINTESTINAL (GI) PANEL ordered. EDMS EDMS 19:59 19:59 GASTROINTESTINAL (GI) PANEL ordered. EDMS EDMS 01/16 04:05 03:49 TYPE & SCREEN ordered. EDMS EDMS 09:57 01/15 19:59 NPO DIET ordered. EDMS EDMS 01/16 09:59 09:57 NPO FOR TEST/PROCEDURE ordered. EDMS EDMS : 01/15 16:08 [facility] Payment Agreement vi Chart Complete MTDD
--- NOTE | 2017-01-19 08:29 | DSES ---
DATE OF ADMISSION: 01/15/2017 DATE OF DISCHARGE: 01/18/2017 PRIMARY CARE PROVIDER: Nestor Franco DISCHARGE DIAGNOSES: 1. Rectal bleed with negative colonoscopy, possibly due to diverticular bleeding. 2. Gastritis and duodenitis as per esophagogastroduodenoscopy (EGD). 3. Acute blood loss anemia. 4. History of coronary artery disease, status post angioplasty in 2014. 5. Peripheral arterial disease, status post stent placement. 6. 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 7. Dyslipidemia. 8. Systolic murmur of the heart. 9. Hiatal hernia. 10. Diverticulosis in the sigmoid colon. DISCHARGE MEDICATIONS: - aspirin 81 mg daily - Colace 200 mg twice a day as needed constipation - pantoprazole 40 mg twice a day - sucralfate 1 gram by mouth before meals and at bedtime - atorvastatin 20 mg daily HOSPITAL COURSE: This is a 66-year-old male who presented to the hospital with dizziness and lightheadedness and 2-day history of bright red blood per rectum 6-7 times. He was found to be anemic with a hemoglobin of 5.7 with symptoms. The patient was transfused 2 units of blood transfusion. With that, hemoglobin improved to mid-8s and has remained stable. Since then, after admission, in the hospital, the patient did not have any further bleeding per rectum. The patient underwent EGD and colonoscopy by Dr. Elias. EGD showed gastritis and duodenitis. Colonoscopy showed some diverticulosis in the sigmoid colon, and the bleeding was thought to be mostly related to diverticular bleeding; however, gastritis and duodenitis may also have played a part in it. At present, the patient is symptom-free. Hemoglobin and hematocrit is stable. Vital signs stable. The patient is functionally at baseline, and he is going to be discharged home in a stable condition. PHYSICAL EXAMINATION: Vital signs: Temperature 96.3, pulse 69, respiratory rate 16, blood pressure 102/73, pulse oximetry 94% in room air. General: The patient awake, alert, oriented times three, sitting up in bed, in no acute distress. HEENT: Normocephalic, atraumatic. Moist mucous membranes. Anicteric eyes. Chest: Clear to auscultation. Cardiovascular: S1, S2, regular. Abdomen: Soft, nontender. Bowel sounds present. Extremities: No edema. LABORATORY DATA: WBC 4.8, hemoglobin 8.6, platelets 166. Sodium 146, potassium 3.5, chloride 108, bicarbonate 30, BUN 4, creatinine 0.7, glucose 124, calcium 8, hemoglobin A1c 5.8. Abdomen and pelvis CT did not show any acute pathology. Kidney showed renovascular calcification and nonobstructive renal calculi. The enteric system was unremarkable. DISPOSITION: The patient is discharged home in a stable condition. DISCHARGE INSTRUCTIONS: The patient to followup with primary care provider in 1-2 weeks. Regular diet. Activity as tolerated.
== END 2017-01-18 10:45 | disposition home or self-care (01) | DRG 663 ==
LOC: M ED 13:03 → M ED INP 19:52 → M PCU 01-16 20:15 → M MSPAV 01-17 22:13
PROVIDERS: ADMIT Internal Medicine; ATTEND Internal Medicine Nephrology
PROC: 30253N1 (ICD-10-PCS; 2017-01-15)
PROC: 0DJD8ZZ Inspection of Lower Intestinal Tract, Via Natural or Artificial Opening Endoscopic (ICD-10-PCS; 2017-01-17)
PROC: 0DJ08ZZ Inspection of Upper Intestinal Tract, Via Natural or Artificial Opening Endoscopic (ICD-10-PCS; principal; 2017-01-17 13:45)
DX: D62 Acute posthemorrhagic anemia (principal); K57.31 Diverticulosis of large intestine without perforation or abscess with bleeding; F17.210 Nicotine dependence, cigarettes, uncomplicated; Z79.02 Long term (current) use of antithrombotics/antiplatelets; Z79.82 Long term (current) use of aspirin; Z79.899 Other long term (current) drug therapy; Z85.819 Personal history of malignant neoplasm of unspecified site of lip, oral cavity, and pharynx; I25.2 Old myocardial infarction; Z98.61 Coronary angioplasty status; I25.10 Atherosclerotic heart disease of native coronary artery without angina pectoris; Z95.820 Peripheral vascular angioplasty status with implants and grafts; K29.70 Gastritis, unspecified, without bleeding; K29.80 Duodenitis without bleeding; I73.9 Peripheral vascular disease, unspecified; Z92.21 Personal history of antineoplastic chemotherapy; Z92.3 Personal history of irradiation; R01.1 Cardiac murmur, unspecified; K44.9 Diaphragmatic hernia without obstruction or gangrene

== ENCOUNTER → 2017-01-15 | Outpatient (REF) | payer BC ==
[~2017-01-15] MED LIST: ASPI1TAB PO; ASPI325T28 PO; ASPI81TA85 PO; ATOR1TAB21 PO; CIAL20TA PO; CLOP75TA2 PO; COLA100C PO; INVO100T PO; IRON65TA PO; JANU50TA8 PO; LISI-542 PO; LOVA40TA PO; METO25TAB PO; OMEP20CA3 PO; PANT40TA2 PO; PLAV75TA38 PO; SILV-4 TOP; SUCR1TA PO; TYLENOL #3 OR; WELC625T PO; flomax PO
--- NOTE | 2017-01-17 14:38 | ROOR ---
Patient Name: Fred Riggs Procedure Date: 01/17/2017 2:31 PM Date of : 1950 Age: 66 Room: [facility] Gender: Male Note Status: Finalized Procedure: Upper GI endoscopy Indications: Recent gastrointestinal bleeding Providers: Nic Elias Jr, MD Referring MD: 1. No Referring Physician 1. No Referring Physician, Admin. Requesting Provider: Medicines: Propofol per Anesthesia Complications: No immediate complications. Procedure: Pre-Anesthesia Assessment: - Prior to the procedure, a History and Physical was performed, and patient medications and allergies were reviewed. The patient is competent. The risks and benefits of the procedure and the sedation options and risks were discussed with the patient. All questions were answered and informed consent was obtained. Patient identification and proposed procedure were verified by the physician and the nurse in the pre-procedure area and in the procedure room. Mental Status Examination: alert and oriented. Airway Examination: normal oropharyngeal airway and neck mobility. Respiratory Examination: clear to auscultation. CV Examination: normal. ASA Grade Assessment: III - A patient with severe systemic disease. After reviewing the risks and benefits, the patient was deemed in satisfactory condition to undergo the procedure. The anesthesia plan was to use moderate sedation / analgesia (conscious sedation). Immediately prior to administration of medications, the patient was re-assessed for adequacy to receive sedatives. The heart rate, respiratory rate, oxygen saturations, blood pressure, adequacy of pulmonary ventilation, and response to care were monitored throughout the procedure. The physical status of the patient was re-assessed after the procedure. The Endoscope was introduced through the mouth, and advanced to the second part of duodenum. The upper GI endoscopy was accomplished without difficulty. The patient tolerated the procedure well. Findings: The upper third of the esophagus, middle third of the esophagus and lower third of the esophagus were normal. Patchy moderate inflammation characterized by congestion (edema), erythema, friability and granularity was found in the gastric antrum. The cardia, gastric fundus and gastric body were normal. Patchy moderate inflammation characterized by congestion (edema), erythema, friability and granularity was found in the duodenal bulb and in the first portion of the duodenum. The second portion of the duodenum was normal. Impression: - Normal upper third of esophagus, middle third of esophagus and lower third of esophagus. - Gastritis. - Normal cardia, gastric fundus and gastric body. - Duodenitis. - Normal second portion of the duodenum. - No specimens collected. Recommendation: - Return patient to [facility] for possible discharge same day. Nic Elias MD Nic Elias Jr, MD 01/17/2017 2:38:13 PM This report has been signed electronically. Number of Addenda: 0 Note Initiated On: 01/17/2017 2:31 PM Estimated Blood Loss: Estimated blood loss: none.
--- NOTE | 2017-01-17 14:59 | ROOR ---
Patient Name: Fred Riggs Procedure Date: 01/17/2017 2:30 PM Date of : 1950 Age: 66 Room: [facility] Gender: Male Note Status: Finalized Procedure: Colonoscopy Indications: Rectal bleeding Providers: Nic Elias Jr, MD Referring MD: 1. No Referring Physician 1. No Referring Physician, Admin. Requesting Provider: Medicines: Propofol per Anesthesia Complications: No immediate complications. Procedure: Pre-Anesthesia Assessment: - Prior to the procedure, a History and Physical was performed, and patient medications and allergies were reviewed. The patient is competent. The risks and benefits of the procedure and the sedation options and risks were discussed with the patient. All questions were answered and informed consent was obtained. Patient identification and proposed procedure were verified by the physician and the nurse in the pre-procedure area and in the procedure room. Mental Status Examination: alert and oriented. Airway Examination: normal oropharyngeal airway and neck mobility. Respiratory Examination: clear to auscultation. CV Examination: normal. ASA Grade Assessment: III - A patient with severe systemic disease. After reviewing the risks and benefits, the patient was deemed in satisfactory condition to undergo the procedure. The anesthesia plan was to use moderate sedation / analgesia (conscious sedation). Immediately prior to administration of medications, the patient was re-assessed for adequacy to receive sedatives. The heart rate, respiratory rate, oxygen saturations, blood pressure, adequacy of pulmonary ventilation, and response to care were monitored throughout the procedure. The physical status of the patient was re-assessed after the procedure. The Colonoscope was introduced through the anus and advanced to the ileocecal valve. The colonoscopy was performed with moderate difficulty due to significant looping. Successful completion of the procedure was aided by using manual pressure, withdrawing and reinserting the scope and straightening and shortening the scope to obtain bowel loop reduction. Findings: The perianal and digital rectal examinations were normal. Pertinent negatives include normal sphincter tone, no palpable rectal lesions and no anal lesion or abnormality was detected. A few small-mouthed diverticula were found in the sigmoid colon. The rectum, recto-sigmoid colon, descending colon, transverse colon and ascending colon appeared normal. Impression: - Diverticulosis in the sigmoid colon. - The rectum, recto-sigmoid colon, descending colon, transverse colon and ascending colon are normal. - No specimens collected. Recommendation: - Return patient to [facility] for possible discharge same day. Nic Elias MD Nic Elias Jr, MD 01/17/2017 2:59:28 PM This report has been signed electronically. Number of Addenda: 0 Note Initiated On: 01/17/2017 2:30 PM Estimated Blood Loss: Estimated blood loss: none.
== END ==
LOC: M SFHCLERA 12:58
PROVIDERS: ATTEND Nurse Practitioner Family
DX: R53.81 Other malaise (principal)

== ENCOUNTER → 2017-03-13 | Outpatient (CLI) | payer BC ==
[~2017-03-13] MED LIST changes: +ASPI325T28 PO; +ASPI81TA85 PO; +ATOR1TAB21 PO; +COLA100C3 PO; +IRON65TA PO; +PANT40TA2 PO; +PLAV75TA38 PO; +SUCR1TA PO
--- NOTE | 2017-03-14 11:19 | RADONC ---
RADIATION ONCOLOGY FOLLOWUP VISIT DATE: 03/13/2017 DIAGNOSIS: Supraglottic larynx cancer. STAGE: CARLOS, [id number]. ECOG PERFORMANCE STATUS: 1. FOLLOWUP NOTE: Mr. 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 The patient presents today reporting that he is doing extremely well with no significant difficulties related to his radiation therapy other than some xerostomia. He is having no difficulty swallowing or other problems. The patient's PEG tube was removed at the [facility]. The patient's review of systems is positive for some xerostomia but is otherwise noncontributory. He denies nausea, vomiting, fevers, chills, night sweats, diplopia, headaches, anxiety or depression, anorexia, weight loss, visual disturbances, chest pain, urinary or bowel difficulties, bone pain, or neurological problems. PHYSICAL EXAMINATION: The patient is a well-developed, well-nourished white male in no acute distress. HEENT: Exam is normocephalic, atraumatic. Extraocular movements are intact. Oral cavity examination reveals no evidence of nodularity, ulceration or disease. Oral pharyngeal examination was also free of malignancy. Fiberoptic laryngoscopic examination was deferred and is being carried out by his ENT physician in [place]. There was no palpable preauricular, cervical, supraclavicular, infraclavicular or axillary lymphadenopathy present. His lungs clear to auscultation and percussion. His heart has regular rate and rhythm. ASSESSMENT: The patient is clinically TREMAINE at this time. He is being seen every 6 weeks and undergoing fiberoptic laryngoscopic examination at the [facility] in [place]. I have therefore set him up to see me again in six months' time. He is also continuing his followup with his other physicians in the meantime. cc: *Domingo Pruett MD *Nitin Yao DO *Brett Costa MD *James Carroll MD
== END ==
LOC: M ONCR 14:44
PROVIDERS: ATTEND Radiology Radiation Oncology
DX: C32.1 Malignant neoplasm of supraglottis (principal)

== ENCOUNTER → 2017-06-13 | Outpatient (CLI) | payer BC ==
[~2017-06-13] MED LIST changes: -COLA100C3 PO; +COLA100C5 PO; +COLE625TAB PO; +ISOVUE-370 76% 100ML VIAL (Q9967) As Ordered ONE; +PLAV1TAB2 PO; -PLAV75TA38 PO; -WELC625T PO
--- NOTE | 2017-06-13 17:09 | REP ---
CT NECK WITHOUT CONTRAST: HISTORY: Carcinoma. CONTRAST: Isovue-370 100 mL. COMPARISON: 05/14/2016 A large mass is present in the left lateral and posterior aspect of the hypopharynx. There is extension into the posterior and right lateral flowers of the hypopharynx. There is anterior extension in to the preepiglottic space and superior extension into the epiglottis. There is inferior extension into the larynx to the level of the left true vocal cord. There is anterior extension across the midline into the right true vocal cord. There is superior extension into the lateral flowers of the inferior oropharynx. There is moderate mass effect on the hypopharynx. The nasopharynx is normal in appearance. The salivary ion thyroid glands are normal. Small lymph nodes less than 1 cm in size are present in the internal jugular chains, posterior triangles, submandibular and submental areas. Increased density is present of the anterior subcutaneous tissue and retropharyngeal space likely secondary to postradiation change. Atherosclerotic calcification is present at the carotid bifurcations. Degenerative changes is present in the cervical spine. No new disease are clear. The visualized sinuses are clear. IMPRESSION: There is a large mass in the hypopharynx with extension into oropharynx and larynx that is increased in size compared to the previous study. There is moderate mass effect on the hypopharynx. Signed by Portillo Ruiz MD 06/14/2017 08:57 A
--- NOTE | 2017-06-14 06:33 | REP ---
Clinical: History of head/neck cancer. Technique: Axial contrast enhanced images from the thoracic inlet to the upper abdomen using 100 ml Isovue 370 intravenous contrast material with coronal and sagittal re-formations. Comparison: None. Findings: The bilateral lung mckeon are relatively well aerated. Bibasilar dependent and atelectatic changes are suggested (left greater than right). 10 mm non solid lesion in the subpleural basilar right upper lobe inseparable from the minor fissure (image 48). No further nodule or mass lesion appreciated. No pleural effusion. Mild hilar and mediastinal adenopathy with lymph nodes measuring up to approximately 11 mm short axis diameter in the left paratracheal aortopulmonary window are nonspecific. Atherosclerotic changes to the thoracic aorta and coronary arteries noted without aortic aneurysm or cardiomegaly. No pericardial effusion. Musculoskeletal structures demonstrate age-related changes without focal osseous abnormality. Limited upper abdomen demonstrates normal bilateral adrenal glands. Impression: Single 10 mm non solid density inseparable from the minor fissure warrants 3 - 6 month follow-up evaluation. Minimal basilar atelectasis (left greater than right). Nonspecific hilar/mediastinal lymph nodes. Signed by Kemal Holder MD 06/14/2017 06:10 A
== END ==
LOC: M RAD 15:48
PROVIDERS: ATTEND Internal Medicine Hematology & Oncology
DX: C76.0 Malignant neoplasm of head, face and neck (principal)
CPT/HCPCS: 70491; 71260; Q9967

== ENCOUNTER → 2017-09-18 | Outpatient (CLI) | payer BC ==
[~2017-09-18] MED LIST changes: -ISOVUE-370 76% 100ML VIAL (Q9967) As Ordered ONE
--- NOTE | 2017-09-19 10:54 | RADONC ---
RADIATION ONCOLOGY FOLLOWUP NOTE DATE: 09/18/2017 CHART NUMBER: [id number]. DIAGNOSIS: Supraglottic larynx cancer. STAGE: CARLOS, [id number]. ECOG PERFORMANCE STATUS: 0. FOLLOWUP NOTE: Mr. 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 The patient presents today reporting he is doing quite well with no significant difficulties related to his radiation therapy. He is having no difficulty swallowing or speaking. No significant difficulty swallowing or speaking. The patient's review of systems is noncontributory except for some difficulty eating solid foods. Denies nausea, vomiting, fevers, chills, night sweats, diplopia, headaches, anxiety or depression, anorexia, weight loss, visual disturbances, chest pain, urinary or bowel difficulties, bone pain, or neurological problems. PHYSICAL EXAMINATION: The patient is well-developed, well-nourished white male in no acute distress. His weight is up 2 pounds to 174.6 pounds. HEENT: Exam is normocephalic, atraumatic. Extraocular movements are intact. Examination of the patient's oral cavity reveals no evidence of lesions, nodularity, or disease. There is no palpable preauricular, cervical, supraclavicular, infraclavicular, or axillary lymphadenopathy present. His lungs are clear to auscultation and percussion. His heart has a regular rate and rhythm. His abdomen is benign with no evidence splenomegaly, masses, or tenderness. ASSESSMENT: The patient appears to be doing quite well at this point. I have seen the CT scan done 06/13/2017 and personally reviewed the scans myself. They are reported to show a large fullness in the hypopharynx area with extension to the oropharynx and larynx. They report that this has increased in size. The patient reports that he is being followed in [place] and has had a PET scan, as well as a biopsy, done 2 months ago. I do not have a result of those studies. He is being followed and managed closely by Dr. Domingo Pruett. I do have Dr. Pruett's note, and I am confident that he is under good care and being managed closely. We are attempting to get copies of his PET scan reports, as well as pathology reports and other work, from [facility]. In the meantime, since he is being managed so closely at that facility, I have set him up for routine followup in our office for 6 months' time. If for some reason once we obtain the information, any recommendations should change, we will followthrough on this. Sincerely, Yuniel Avendaño cc: MD James Napoles MD, FACP Domingo Pruett MD *Brett Costa MD
== END ==
LOC: M ONCR 15:25
PROVIDERS: ATTEND Radiology Radiation Oncology
DX: C32.1 Malignant neoplasm of supraglottis (principal)

== ENCOUNTER → 2018-03-19 | Outpatient (CLI) | payer MEDICARE, BC | LOC: M ONCR 15:17 | DX: C32.1 Malignant neoplasm of supraglottis (principal) | CPT/HCPCS: G0463 ==

== ENCOUNTER → 2018-08-07 | Outpatient (REF) | payer OTHER ==
[2018-08-07 18:26] LABS: ESTIMATED AVERAGE GLUCOSE 120 MG/DL (60-110); HEMOGLOBIN A1c 5.8 %
[2018-08-07 18:30] LABS: ALBUMIN 3.7 GM/DL (3.2-5.2); ALBUMIN/GLOBULIN RATIO 1.19 (1.00-1.93); ALKALINE PHOSPHATASE 81 U/L (45-117); ALT/SGPT 15 U/L (12-78); ANION GAP 6 MEQ/L (8-16); AST/SGOT 8 U/L (7-37); BILIRUBIN,TOTAL 0.8 MG/DL (0.2-1.0); BLOOD UREA NITROGEN 12 MG/DL (7-18); CALCIUM LEVEL 8.8 MG/DL (8.8-10.2); CARBON DIOXIDE LEVEL 33 MEQ/L (21-32); CHLORIDE LEVEL 103 MEQ/L (98-107); CHOLESTEROL LEVEL 92 MG/DL (<200); CREATININE FOR GFR 0.78 MG/DL (0.70-1.30); GLOMERULAR FILTRATION RATE > 60.0 (>49); GLUCOSE, FASTING 101 MG/DL (70-100); HDL CHOLESTEROL 40 MG/DL (>40); LDL CHOLESTEROL 37.6 MG/DL (<100); NON-HDL-C 52 MG/DL; POTASSIUM SERUM 3.9 MEQ/L (3.5-5.1); SODIUM LEVEL 142 MEQ/L (136-145); TOTAL PROTEIN 6.8 GM/DL (6.4-8.2); TRIGLYCERIDES LEVEL 72 MG/DL (<150)
[2018-08-07 20:07] LABS: HEMATOCRIT 44.7 % (42.0-52.0); HEMOGLOBIN 14.3 g/dl (13.5-17.5); MEAN CORPUSCULAR HEMOGLOBIN 30.8 pg (27.0-33.0); MEAN CORPUSCULAR VOLUME 96.1 fl (80.0-96.0); PLATELET COUNT, AUTOMATED 216 10^3/uL (150-450); RED BLOOD COUNT 4.65 10^6/uL (4.30-6.10); RED CELL DISTRIBUTION WIDTH 14.2 % (11.5-14.5); WHITE BLOOD COUNT 8.5 10^3/uL (4.0-10.0)
== END ==
LOC: M SFHCLERA 10:22
DX: R73.02 Impaired glucose tolerance (oral) (principal); E78.5 Hyperlipidemia, unspecified
CPT/HCPCS: 80053

== ENCOUNTER → 2018-11-18 | Outpatient (REF) | payer OTHER ==
[~2018-11-18] MED LIST changes: +ASPI-222 PO; -ASPI325T28 PO; -PANT40TA2 PO; +PANT40TA3 PO
[2018-11-18 17:31] LABS: HEMOGLOBIN A1c 6.8 %
== END ==
LOC: M SFHCLERA 15:01
PROVIDERS: ATTEND Family Medicine
DX: E11.9 Type 2 diabetes mellitus without complications (principal)
CPT/HCPCS: 83036; G0463

== ENCOUNTER → 2019-03-25 | Outpatient (CLI) | payer MEDICARE ==
[~2019-03-25] MED LIST changes: -ASPI1TAB PO; +ASPI81TA26 PO; +METO1TAB63 PO; -METO25TAB PO
--- NOTE | 2019-03-31 13:05 | RADONC ---
RADIATION ONCOLOGY FOLLOWUP NOTE DATE: 03/25/2019 CHART #: [id number] DIAGNOSIS: Supraglottic larynx cancer. STAGE: IV A, [id number]. ECOG PERFORMANCE STATUS: 0. FOLLOWUP NOTE: Mr. 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 The patient presents today reporting that he is generally doing quite well. He is being followed and just underwent fiberoptic laryngoscopic evaluation in [place] last month. He is being seen down there every couple of months. The patient presents today reporting he is having no difficulty swallowing or problems with his tracheostomy. REVIEW OF SYSTEMS: The patient's review of systems is positive for the difficulties of his tracheostomy but is otherwise largely noncontributory. Denies nausea, vomiting, fevers, chills, night sweats, diplopia, headaches, anxiety or depression, anorexia, weight loss, visual disturbances, chest pain, urinary or bowel difficulties, bone pain, or neurological problems. PHYSICAL EXAMINATION: The patient is a well-developed, well-nourished white male in no acute distress. HEENT: Normocephalic, atraumatic. Extraocular movements are intact. Examination of the patient's oral cavity fails to reveal any nodularity or disease. He has a tracheostomy site which is free of infection or nodularity. There is no palpable cervical, supraclavicular, infraclavicular or axillary lymphadenopathy present. His lungs are clear to auscultation and percussion. The remainder of his physical exam is unchanged. ASSESSMENT: Mr. Riggs is clinically doing well at this time. Since he is being followed and managed so closely by his other physicians, I am discharging him from our followup except on a p.r.n. basis. cc: MD James Napoles MD, FACP Domingo Pruett MD
== END ==
LOC: M ONCR 14:53
PROVIDERS: ATTEND Radiology Radiation Oncology
DX: C32.1 Malignant neoplasm of supraglottis (principal); Z92.3 Personal history of irradiation

== ENCOUNTER → 2019-05-20 | Outpatient (REF) | payer OTHER ==
[~2019-05-20] MED LIST changes: +ALAVTAB PO; +METF500T13 PO; +[UNRECOGNIZED DRUG - CODE] PO
[2019-05-20 12:11] LABS: BASO % 0.5 % (0.0-1.0); EOS # 0.2 10^3/uL (0.0-0.50); EOS % 2.9 % (0.0-3.0); HEMATOCRIT 45.7 % (42.0-52.0); HEMOGLOBIN 14.4 g/dl (13.5-17.5); LYMPH # 1.1 10^3/uL (1.5-4.5); LYMPH % 15.2 % (24.0-44.0); MEAN CORPUSCULAR HEMOGLOBIN 29.6 pg (27.0-33.0); MEAN CORPUSCULAR HGB CONC 31.5 g/dl (32.0-36.5); MONO # 0.5 10^3/uL (0.0-0.8); MONO % 7.1 % (0.0-5.0); NEUTROPHILS # 5.4 10^3/uL (1.8-7.7); NEUTROPHILS % 73.9 % (36.0-66.0); PLATELET COUNT, AUTOMATED 237 10^3/uL (150-450); RED BLOOD COUNT 4.86 10^6/uL (4.30-6.10); WHITE BLOOD COUNT 7.3 10^3/uL (4.0-10.0)
[2019-05-20 12:22] LABS: ALBUMIN 3.5 GM/DL (3.2-5.2); ALT/SGPT 13 U/L (12-78); BILIRUBIN,TOTAL 0.5 MG/DL (0.2-1.0); BLOOD UREA NITROGEN 17 MG/DL (7-18); CALCIUM LEVEL 9.3 MG/DL (8.8-10.2); CARBON DIOXIDE LEVEL 31 MEQ/L (21-32); CHLORIDE LEVEL 105 MEQ/L (98-107); CHOLESTEROL LEVEL 133 MG/DL (<200); CHOLESTEROL RISK RATIO 3.694 (<5); CREATININE FOR GFR 0.93 MG/DL (0.70-1.30); GLOMERULAR FILTRATION RATE > 60.0 (>49); GLUCOSE, FASTING 124 MG/DL (70-100); HDL CHOLESTEROL 36 MG/DL (>40); LDL CHOLESTEROL 72 MG/DL (<100); NON-HDL-C 97 MG/DL; POTASSIUM SERUM 4.5 MEQ/L (3.5-5.1); SODIUM LEVEL 142 MEQ/L (136-145); TRIGLYCERIDES LEVEL 123 MG/DL (<150)
== END ==
LOC: M SFHCLERA 08:30
PROVIDERS: ATTEND Family Medicine
DX: E11.9 Type 2 diabetes mellitus without complications (principal)

== ENCOUNTER 2019-05-25 16:55 | Emergency (ER) | payer MEDICARE, OTHER ==
[~2019-05-25] VITALS: Ht 182.9 cm; Wt 83.3 kg
[~2019-05-25 16:55] MED LIST changes: -ALAVTAB PO; -METF500T13 PO; -OMEP20CA3 PO; +OMEP20CA4 PO; -[UNRECOGNIZED DRUG - CODE] PO
[2019-05-25] MEDS ORDERED: ADACEL/BOOSTRIX VACCINE (DIPHTH/PERTUSS/ACELL/TETANUS)0.5ML SYR (90715) IM ONE (17:15)
[2019-05-25] MEDS ORDERED: METF500T13 PO (17:20)
--- NOTE | 2019-05-25 17:37 | REP ---
Clinical: Trauma. Comparison: None . Findings: Atrophy with periventricular leukomalacia and microvascular ischemic changes are appreciated. There is a single small hyperdense focus in the high right frontal lobe (image 23) measuring approximately 3 mm which may represent a very small contusion versus chronic change. No prior examination is available for comparison. The ventricles and sulci are symmetric. Brown-white differentiation is maintained. There is no evidence for acute intracranial hemorrhage, mass/mass effect, pathology or infarction. No extra-axial fluid collection. Calvarium is intact. Paranasal sinuses and mastoid air cells are clear. Impression: Atrophy with periventricular leukomalacia and microvascular ischemic changes. A very small parenchymal contusion in the high right frontal lobe versus chronic change cannot be excluded. Correlation with physical examination is recommended and if necessary repeat examination in 12-24 hours may be considered. Electronically Signed by Kemal Holder MD 05/25/2019 05:28 P
[2019-05-25] MEDS ORDERED: ALAVTAB PO (17:38)
[2019-05-25] MEDS ORDERED: [UNRECOGNIZED DRUG - CODE] PO (17:38)
--- NOTE | 2019-05-25 17:39 | REP ---
Clinical: Trauma. Technique: Axial noncontrast images from the skull base to the thoracic inlet with coronal and sagittal re-formations. Comparison: Neck CT dated 06/13/2017. Findings: Tracheostomy identified. Early advanced multifocal degenerative disc osteophyte complexes are appreciated including osteophytosis, endplate sclerosis/heterogeneity, and disc space narrowing. No acute fracture / compression injury or subluxation identified. Spinal canal is grossly patent. Posterior elements and spinous processes are intact. Impression: Advanced multilevel degenerative spondylosis. No acute fracture / compression injury or subluxation. Electronically Signed by Kemal Holder MD 05/25/2019 05:30 P
--- NOTE | 2019-05-25 17:40 | REP ---
Clinical: Trauma. Technique: Internal rotation, external rotation, and Y view of the right shoulder. Findings: Moderate/early advanced osteoarthritic degenerative changes are appreciated including cortical irregularity and spurring at the acromioclavicular joint, blunting/irregularity of the calcified glenoid rim, and very small calcification suggesting calcific tendinopathy with decrease subacromial space. No obvious acute fracture or dislocation. Impression: Moderate/early advanced osteoarthritic degenerative changes. No acute fracture or dislocation appreciated. Electronically Signed by Kemla Holder MD 05/25/2019 05:31 P
[2019-05-25] MEDS ORDERED: LIDOCAINE W/EPINEPHRINE 1% 20ML VIAL As Ordered ONE (17:53)
[2019-05-25] MEDS ORDERED: LIDOCAINE W/EPINEPHRINE 1% 20ML VIAL SC ONE (18:00)
[2019-05-25] MEDS ORDERED: NS 1,000 ML IV SCH (18:30)
[2019-05-25 18:50] VITALS: BP 120/70
== END 2019-05-25 18:53 | disposition short-term general hospital (02) ==
LOC: EDBD 16:55 → M ED 16:55
DX: S06.360A Traumatic hemorrhage of cerebrum, unspecified, without loss of consciousness, initial encounter (principal); S06.310A Contusion and laceration of right cerebrum without loss of consciousness, initial encounter; S01.01XA Laceration without foreign body of scalp, initial encounter; M47.812 Spondylosis without myelopathy or radiculopathy, cervical region; M19.011 Primary osteoarthritis, right shoulder; W17.89XA Other fall from one level to another, initial encounter; Y92.79 Other farm location as the place of occurrence of the external cause; Y99.0 Civilian activity done for income or pay; E11.9 Type 2 diabetes mellitus without complications; I25.10 Atherosclerotic heart disease of native coronary artery without angina pectoris; I25.2 Old myocardial infarction; K21.9 Gastro-esophageal reflux disease without esophagitis; Z95.1 Presence of aortocoronary bypass graft; Z85.21 Personal history of malignant neoplasm of larynx; Z93.0 Tracheostomy status; Z87.891 Personal history of nicotine dependence

== ENCOUNTER → 2019-05-28 | Outpatient (CLI) | payer MEDICARE ==
[~2019-05-28] MED LIST changes: +ALAVTAB PO; +METF500T13 PO; +OMEP20CA3 PO; -OMEP20CA4 PO; +[UNRECOGNIZED DRUG - CODE] PO
--- NOTE | 2019-05-29 08:48 | REP ---
Clinical: Pain with recent fall. Technique: Internal rotation, external rotation, and Y view of the right shoulder. Comparison: 05/25/2019 Findings: The current examination demonstrates new partial acromioclavicular joint separation. No acute fracture. Glenohumeral joint is intact and grossly normal/stable. Impression: Findings consistent with AC joint separation. Electronically Signed by Kemal Holder MD 05/28/2019 05:22 P
== END ==
LOC: M LRY 16:34
PROVIDERS: ATTEND Family Medicine
DX: S43.101D Unspecified dislocation of right acromioclavicular joint, subsequent encounter (principal)

== ENCOUNTER → 2019-07-31 | Outpatient (CLI) | payer MEDICARE ==
[~2019-07-31] MED LIST changes: -ASPI-222 PO; +ASPI-527 PO; -OMEP20CA3 PO; +OMEP20CA4 PO
--- NOTE | 2019-07-31 10:20 | REP ---
CT chest without contrast: History: Abnormal finding of the lung field. The patient gives a history of malignancy in the throat and melanoma. Comparison chest CT study June 13, 2017. CT findings: The June 2017 prior study showed a peripheral nodular opacity 10 mm in diameter in the right upper lobe subpleural in location. This is again seen and is unchanged. There is a new patchy tree in bud pattern of peribronchovascular nodularity in the right middle lobe below this today consistent with inflammatory change. There is a stable 4 mm nodular opacity in the right lower lobe unchanged from the 2017 study. No other significant pulmonary opacity is appreciated. No pleural or pericardial effusion is seen. There is extensive vascular calcification. Prior sternotomy wires are seen. Tracheostomy tube is seen in position. Visualized upper abdominal structures are unremarkable. No bony destructive lesion is seen. Impression: Patchy consolidation with tree in bud configuration in the right middle lobe consistent with pneumonia. Stable nodular opacities in the right upper lobe and right lower lobe unchanged from the 2017 study. Tracheostomy tube. Electronically Signed by Pradip Puente MD 07/31/2019 04:01 P
== END ==
LOC: M RAD 08:55
PROVIDERS: ATTEND Internal Medicine Pulmonary Disease
DX: R91.8 Other nonspecific abnormal finding of lung field (principal)

== ENCOUNTER → 2019-08-20 | Outpatient (REF) | payer MEDICARE ==
[2019-08-20 12:26] LABS: CHOLESTEROL RISK RATIO 2.82 (<5)
[2019-08-20 15:25] LABS: HEMOGLOBIN A1c 6.8 %
== END ==
LOC: M SFHCLERA 08:35
PROVIDERS: ATTEND Family Medicine
DX: E11.9 Type 2 diabetes mellitus without complications (principal)

== ENCOUNTER → 2019-08-25 | Outpatient (REF) | payer MEDICARE ==
[2019-08-25 12:41] LABS: MALB URINE SIEMENS 10.1 MG/L; MAU/CREAT RATIO 5.7 MCG/MG (0.0-30.0)
== END ==
LOC: M SFHCLERA 08:34
PROVIDERS: ATTEND Family Medicine
DX: E11.9 Type 2 diabetes mellitus without complications (principal)
CPT/HCPCS: 82043; G0463

== ENCOUNTER → 2019-11-10 | Outpatient (REF) | payer MEDICARE ==
[~2019-11-10] MED LIST changes: +OMEP-172 PO; -OMEP20CA4 PO
[2019-11-10 17:20] LABS: ALBUMIN 3.7 GM/DL (3.2-5.2); ALT/SGPT 11 U/L (12-78); BILIRUBIN,TOTAL 1.1 MG/DL (0.2-1.0); BLOOD UREA NITROGEN 11 MG/DL (7-18); CALCIUM LEVEL 9.2 MG/DL (8.8-10.2); CARBON DIOXIDE LEVEL 31 MEQ/L (21-32); CHLORIDE LEVEL 102 MEQ/L (98-107); CREATININE FOR GFR 0.82 MG/DL (0.70-1.30); GLOMERULAR FILTRATION RATE > 60.0 (>49); GLUCOSE, FASTING 117 MG/DL (70-100); POTASSIUM SERUM 4.1 MEQ/L (3.5-5.1); SODIUM LEVEL 139 MEQ/L (136-145)
[2019-11-10 17:27] LABS: HEMOGLOBIN A1c 6.8 %
== END ==
LOC: M SFHCLERA 10:09
PROVIDERS: ATTEND Family Medicine
DX: E11.9 Type 2 diabetes mellitus without complications (principal)

== ENCOUNTER → 2019-11-17 | Outpatient (CLI) | payer MEDICARE ==
--- NOTE | 2019-11-17 09:11 | REP ---
Left wrist: Four views. History: Left wrist pain. Findings: There is vascular calcification in the distal forearm and at the level of the metacarpals. Overall mineralization pattern is normal. Bones, joints and soft tissues are otherwise unremarkable. No fracture or evidence of arthropathy. Impression: Vascular calcification. Otherwise negative left wrist radiographs. Electronically Signed by Pradip Puente MD 11/17/2019 09:02 A
== END ==
LOC: M LRY 08:37
PROVIDERS: ATTEND Family Medicine
DX: M65.4 Radial styloid tenosynovitis [de Quervain] (principal)

== ENCOUNTER → 2020-10-10 | Outpatient (CLI) | payer MEDICARE ==
[~2020-10-10] MED LIST changes: -ASPI81TA85 PO; +ASPI81TA86 PO; -OMEP-172 PO; +OMEP1CAP73 PO; +PANT40TA29 PO; -PANT40TA3 PO
[2020-10-10 16:26] LABS: BASO # 0.1 10^3/uL (0.0-0.2); BASO % 0.5 % (0.0-1.0); EOS # 0.1 10^3/uL (0.0-0.5); EOS % 1.4 % (0.0-3.0); HEMATOCRIT 44.4 % (42.0-52.0); HEMOGLOBIN 14.4 g/dl (13.5-17.5); LYMPH # 1.3 10^3/uL (1.5-5.0); LYMPH % 12.9 % (24.0-44.0); MEAN CORPUSCULAR HEMOGLOBIN 29.4 pg (27.0-33.0); MEAN CORPUSCULAR HGB CONC 32.4 g/dl (32.0-36.5); MEAN CORPUSCULAR VOLUME 90.6 fl (80.0-96.0); MONO # 0.6 10^3/uL (0.0-0.8); MONO % 5.5 % (0.0-5.0); NEUTROPHILS # 7.9 10^3/uL (1.5-8.5); NEUTROPHILS % 79.1 % (36.0-66.0); PLATELET COUNT, AUTOMATED 222 10^3/uL (150-450)
[2020-10-10 16:30] LABS: ALBUMIN 3.8 GM/DL (3.2-5.2); ALT/SGPT 9 U/L (12-78); BILIRUBIN,TOTAL 0.9 MG/DL (0.2-1.0); BLOOD UREA NITROGEN 11 MG/DL (7-18); CALCIUM LEVEL 9.5 MG/DL (8.8-10.2); CARBON DIOXIDE LEVEL 31 MEQ/L (21-32); CHLORIDE LEVEL 101 MEQ/L (98-107); CHOLESTEROL LEVEL 124 MG/DL (<200); CHOLESTEROL RISK RATIO 2.638 (<5); CREATININE FOR GFR 0.86 MG/DL (0.70-1.30); GLOMERULAR FILTRATION RATE > 60.0 (>49); GLUCOSE, FASTING 93 MG/DL (70-100); HDL CHOLESTEROL 47 MG/DL (>40); LDL CHOLESTEROL 61 MG/DL (<100); NON-HDL-C 77 MG/DL; POTASSIUM SERUM 4.1 MEQ/L (3.5-5.1); SODIUM LEVEL 137 MEQ/L (136-145); TOTAL PROTEIN 7.1 GM/DL (6.4-8.2); TRIGLYCERIDES LEVEL 82 MG/DL (<150)
[2020-10-10 16:50] LABS: MALB URINE SIEMENS 21.8 MG/L; MAU/CREAT RATIO 15.9 MCG/MG (0.0-30.0)
[2020-10-10 16:59] LABS: HEMOGLOBIN A1c 6.5 %
== END ==
LOC: M WUC 13:13
PROVIDERS: ATTEND Family Medicine
DX: E11.9 Type 2 diabetes mellitus without complications (principal); E78.5 Hyperlipidemia, unspecified

== ENCOUNTER → 2021-03-20 | Outpatient (CLI) | payer MEDICARE ==
[~2021-03-20] MED LIST changes: -LISI-542 PO; +LISI-898 PO
--- NOTE | 2021-03-20 10:49 | REPPI ---
INDICATION: J44.9 CHRONIC OBSTRUCTIVE PULMONARY DISEASE, UNSPECIFIED COMPARISON: None. TECHNIQUE: PA and lateral. FINDINGS: Tracheostomy in satisfactory position. Evidence for prior sternotomy and CABG. The cardiac silhouette is normal. The lung mckeon demonstrate diffuse chronic appearing interstitial changes along with few right rib fractures of indeterminate age. Bilateral infrahilar and right middle lobe airspace disease noted. No effusion. No pneumothorax. IMPRESSION: 1. Bilateral infrahilar and right middle lobe atelectasis/airspace disease requires correlation. 2. Right lateral rib fractures of indeterminate age. 3. Chronic changes. <Electronically signed by Kemal Holder > 03/20/21 104
== END ==
LOC: M PLAIMG 09:47
PROVIDERS: ATTEND Internal Medicine Pulmonary Disease
DX: J44.9 Chronic obstructive pulmonary disease, unspecified (principal); Z93.0 Tracheostomy status; S22.41XA Multiple fractures of ribs, right side, initial encounter for closed fracture; X58.XXXA Exposure to other specified factors, initial encounter; Y92.9 Unspecified place or not applicable

== ENCOUNTER → 2021-05-19 | Outpatient (CLI) | payer MEDICARE ==
[2021-05-19 16:44] LABS: HEMOGLOBIN A1c 6.5 %
[2021-05-19 17:08] LABS: BLOOD UREA NITROGEN 10 MG/DL (7-18); CALCIUM LEVEL 9.1 MG/DL (8.8-10.2); CARBON DIOXIDE LEVEL 30 MEQ/L (21-32); CHLORIDE LEVEL 103 MEQ/L (98-107); CHOLESTEROL LEVEL 97 MG/DL (<200); CHOLESTEROL RISK RATIO 2.852 (<5); CREATININE FOR GFR 0.93 MG/DL (0.70-1.30); FREE T4 0.75 NG/DL (0.76-1.46); GLOMERULAR FILTRATION RATE > 60.0 (>49); GLUCOSE, FASTING 146 MG/DL (70-100); HDL CHOLESTEROL 34 MG/DL (>40); LDL CHOLESTEROL 46 MG/DL (<100); NON-HDL-C 63 MG/DL; POTASSIUM SERUM 4.1 MEQ/L (3.5-5.1); SODIUM LEVEL 136 MEQ/L (136-145); TRIGLYCERIDES LEVEL 86 MG/DL (<150)
[2021-05-19 17:48] LABS: MALB URINE SIEMENS 12.8 MG/L; MAU/CREAT RATIO 5.5 MCG/MG (0.0-30.0)
== END ==
LOC: M WUC 10:37
PROVIDERS: ATTEND Family Medicine
DX: R79.89 Other specified abnormal findings of blood chemistry (principal); E11.9 Type 2 diabetes mellitus without complications

== ENCOUNTER → 2021-07-13 | Outpatient (CLI) | payer MEDICARE ==
[2021-07-13 12:45] LABS: FREE T4 0.83 NG/DL (0.76-1.46); THYROID STIMULATING HORMONE 10.9 uIU/ML (0.358-3.740)
== END ==
LOC: M WUC 09:40
PROVIDERS: ATTEND Family Medicine
DX: R94.6 Abnormal results of thyroid function studies (principal)

== ENCOUNTER → 2021-07-17 | Outpatient (CLI) | payer MEDICARE ==
--- NOTE | 2021-07-17 09:29 | REP ---
INDICATION: NICOTINE DEPENDENCE. COMPARISON: Comparison CT studies are from July 31, 2019 and June 13, 2017.. TECHNIQUE: Dose reduction was performed utilizing CARE dose with automated adjustment of the kV and MAS according to patient size; iterative reconstruction, automated exposure control, as well as adaptive dose shielding. Helical scanning is acquired and 3 millimeter axial images are re-formatted at lung windows. 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 Vascular calcification is again noted including coronary artery vascular calcification. There is old posttraumatic deformity in the distal clavicle on the right. In the interval since the last exam from March 31, 2019, multiple the old healed rib fractures are seen today. These are on the right side. There are also old healed rib fractures on the left which are unchanged. On lung window settings, today's CT images demonstrate a stable non solid 8 mm nodule in the right middle lobe superior to some peripheral right middle lobe consolidation. The right middle lobe consolidation is more pronounced than on the 2019 study with a bandlike area of atelectasis. This consistent with inflammatory change. there is also a stable 4 mm nodule in the right lower lobe unchanged from the 2017 prior study. No new pulmonary nodule is appreciated. IMPRESSION: Lung RADS category 2 S findings. Inflammatory appearing changes in the right middle lobe. Tracheostomy tube in place. <Electronically signed by Armin Puente > 07/17/21 [id number]
== END ==
LOC: M RAD 08:59
PROVIDERS: ATTEND Internal Medicine Pulmonary Disease
DX: Z12.2 Encounter for screening for malignant neoplasm of respiratory organs (principal); F17.218 Nicotine dependence, cigarettes, with other nicotine-induced disorders

== ENCOUNTER → 2021-10-24 | Outpatient (CLI) | payer MEDICARE ==
[2021-10-24 16:14] LABS: BASO # 0.1 10^3/uL (0.0-0.2); BASO % 0.6 % (0.0-1.0); EOS # 0.2 10^3/uL (0.0-0.5); EOS % 2.7 % (0.0-3.0); HEMATOCRIT 46.1 % (42.0-52.0); HEMOGLOBIN 14.2 g/dl (13.5-17.5); LYMPH # 1.5 10^3/uL (1.5-5.0); LYMPH % 18.7 % (24.0-44.0); MEAN CORPUSCULAR HEMOGLOBIN 28.9 pg (27.0-33.0); MEAN CORPUSCULAR HGB CONC 30.8 g/dl (32.0-36.5); MEAN CORPUSCULAR VOLUME 93.9 fl (80.0-96.0); MONO # 0.5 10^3/uL (0.0-0.8); MONO % 6.7 % (2.0-8.0); NEUTROPHILS # 5.5 10^3/uL (1.5-8.5); NEUTROPHILS % 70.8 % (36.0-66.0); PLATELET COUNT, AUTOMATED 185 10^3/uL (150-450); RED BLOOD COUNT 4.91 10^6/uL (4.30-6.10); WHITE BLOOD COUNT 7.7 10^3/uL (4.0-10.0)
[2021-10-24 16:21] LABS: APPEARANCE, URINE HAZY (CLEAR); BACTERIA, URINE AUTO NEGATIVE (NEGATIVE); BILIRUBIN, URINE AUTO NEGATIVE (NEGATIVE); BLOOD, URINE BLOOD NEGATIVE (NEGATIVE); CALCIUM OXALATE CRYSTALS MODERATE; COLOR, URINE YELLOW (YELLOW); GLUCOSE, URINE (UA) AUTO NEGATIVE (NEGATIVE); KETONE, URINE AUTO NEGATIVE (NEGATIVE); LEUKOCYTE ESTERASE, URINE AUTO NEGATIVE (NEGATIVE); MUCUS, URINE SMALL (NEGATIVE); NITRITE, URINE AUTO NEGATIVE (NEGATIVE); PROTEIN, URINE AUTO 1+ mg/dL (NEGATIVE); RBC, URINE AUTO 1 /HPF (0-3); SQUAMOUS EPITHELIAL CELL UR AU 0 /HPF (0-6); WBC, URINE AUTO 2 /HPF (0-3)
[2021-10-24 16:56] LABS: ALBUMIN 3.7 GM/DL (3.2-5.2); ALT/SGPT 18 U/L (12-78); BILIRUBIN,TOTAL 1.1 MG/DL (0.2-1.0); BLOOD UREA NITROGEN 15 MG/DL (7-18); CALCIUM LEVEL 9.9 MG/DL (8.8-10.2); CARBON DIOXIDE LEVEL 31 MEQ/L (21-32); CHLORIDE LEVEL 106 MEQ/L (98-107); CREATININE FOR GFR 1.06 MG/DL (0.70-1.30); GLOMERULAR FILTRATION RATE > 60.0 (>49); GLUCOSE, FASTING 177 MG/DL (70-100); POTASSIUM SERUM 3.9 MEQ/L (3.5-5.1); SODIUM LEVEL 143 MEQ/L (136-145); TOTAL PROTEIN 7.5 GM/DL (6.4-8.2)
[2021-10-24 17:22] LABS: HEMOGLOBIN A1c 6.3 %
== END ==
LOC: M WUC 10:34
PROVIDERS: ATTEND Family Medicine
DX: E11.9 Type 2 diabetes mellitus without complications (principal); R63.4 Abnormal weight loss; E03.9 Hypothyroidism, unspecified
CPT/HCPCS: 36415; 80053; 81001; 83036; 84443; 85025; G0103

== ENCOUNTER → 2022-02-01 | Outpatient (CLI) | payer MEDICARE ==
[~2022-02-01] MED LIST changes: -LISI-898 PO; +LISI5TAB11 PO
== END ==
LOC: M PLAIMG 14:19
PROVIDERS: ATTEND Internal Medicine Pulmonary Disease
DX: R91.8 Other nonspecific abnormal finding of lung field (principal)

== ENCOUNTER → 2022-04-04 | Outpatient (CLI) | payer MEDICARE ==
[~2022-04-04] MED LIST changes: +GASTROGRAFIN SOLUTION 30ML (Q9963) As Ordered ONE; +ISOVUE-370 76% 100ML VIAL As Ordered ONE
== END ==
LOC: M RAD 12:19
PROVIDERS: ATTEND Nurse Practitioner Family
DX: R63.4 Abnormal weight loss (principal); C32.1 Malignant neoplasm of supraglottis; N40.0 Benign prostatic hyperplasia without lower urinary tract symptoms; N28.1 Cyst of kidney, acquired; R91.8 Other nonspecific abnormal finding of lung field; R59.0 Localized enlarged lymph nodes
CPT/HCPCS: 70491; 71260; 74177; Q9963; Q9967

== ENCOUNTER 2022-04-08 18:02 | Emergency (ER) | payer MEDICARE ==
[~2022-04-08] VITALS: Ht 167.6 cm; Wt 70.9 kg
[~2022-04-08 18:02] MED LIST changes: -GASTROGRAFIN SOLUTION 30ML (Q9963) As Ordered ONE; -ISOVUE-370 76% 100ML VIAL As Ordered ONE
[2022-04-08] MEDS ORDERED: ROSU40TA4 PO (18:10)
[2022-04-08] MEDS ORDERED: LEVO25TA5 PO (18:10)
[2022-04-08 19:11] LABS: BASO % 0.5 % (0.0-1.0); EOS # 0.2 10^3/uL (0.0-0.5); EOS % 2.4 % (0.0-3.0); HEMATOCRIT 44.4 % (42.0-52.0); HEMOGLOBIN 14.7 g/dl (13.5-17.5); LYMPH # 1.5 10^3/uL (1.5-5.0); LYMPH % 24.2 % (24.0-44.0); MEAN CORPUSCULAR HEMOGLOBIN 30.9 pg (27.0-33.0); MEAN CORPUSCULAR HGB CONC 33.1 g/dl (32.0-36.5); MEAN CORPUSCULAR VOLUME 93.5 fl (80.0-96.0); MONO # 0.5 10^3/uL (0.0-0.8); MONO % 7.5 % (2.0-8.0); NEUTROPHILS # 4.1 10^3/uL (1.5-8.5); NEUTROPHILS % 65.1 % (36.0-66.0); PLATELET COUNT, AUTOMATED 168 10^3/uL (150-450); RED BLOOD COUNT 4.75 10^6/uL (4.30-6.10); WHITE BLOOD COUNT 6.2 10^3/uL (4.0-10.0)
[2022-04-08 19:29] LABS: ERYTHROCYTE SEDIMENTATION RATE 17 mm/hr (0-20)
[2022-04-08 20:48] VITALS: BP 139/82
[2022-04-08] MEDS ORDERED: CLEO300C2 PO (20:51)
[2022-04-08] MEDS ORDERED: CLINDAMYCIN 150MG CAPSULE PO ONE (20:55)
== END 2022-04-08 21:01 | disposition home or self-care (01) ==
LOC: M ED 18:02
DX: K05.10 Chronic gingivitis, plaque induced (principal); R22.0 Localized swelling, mass and lump, head; I25.10 Atherosclerotic heart disease of native coronary artery without angina pectoris; E11.9 Type 2 diabetes mellitus without complications; I10 Essential (primary) hypertension; K21.9 Gastro-esophageal reflux disease without esophagitis; Z95.5 Presence of coronary angioplasty implant and graft; F17.200 Nicotine dependence, unspecified, uncomplicated; Z85.89 Personal history of malignant neoplasm of other organs and systems; Z79.82 Long term (current) use of aspirin; Z79.84 Long term (current) use of oral hypoglycemic drugs; Z79.899 Other long term (current) drug therapy; Z88.0 Allergy status to penicillin

== ENCOUNTER → 2022-05-25 | Outpatient (CLI) | payer MEDICARE ==
[~2022-05-25] MED LIST changes: +CLEO300C2 PO; +LEVO25TA5 PO; +ROSU40TA4 PO
[2022-05-25 17:02] LABS: CREATININE FOR GFR 1.11 MG/DL (0.70-1.30); GLOMERULAR FILTRATION RATE > 60.0 (>42)
== END ==
LOC: M WUC 11:14
PROVIDERS: ATTEND Otolaryngology
DX: C32.9 Malignant neoplasm of larynx, unspecified (principal); R22.0 Localized swelling, mass and lump, head

== ENCOUNTER → 2022-06-05 | Outpatient (CLI) | payer MEDICARE ==
[~2022-06-05] MED LIST changes: +ISOVUE-370 76% 100ML VIAL As Ordered ONE
== END ==
LOC: M RAD 14:33
PROVIDERS: ATTEND Otolaryngology
DX: C32.9 Malignant neoplasm of larynx, unspecified (principal); R22.0 Localized swelling, mass and lump, head; I65.23 Occlusion and stenosis of bilateral carotid arteries; J39.2 Other diseases of pharynx
CPT/HCPCS: 70491; Q9967

== ENCOUNTER → 2022-08-01 | Outpatient (RCR) | payer MEDICARE ==
[~2022-08-01] MED LIST changes: -ISOVUE-370 76% 100ML VIAL As Ordered ONE
== END ==
LOC: M PT 07-23 12:59
PROVIDERS: ATTEND Otolaryngology
DX: I89.0 Lymphedema, not elsewhere classified (principal)

== ENCOUNTER 2022-08-30 12:30 | Outpatient (RCR) | payer MEDICARE ==
[~2022-08-30 12:30] MED LIST changes: +COLE625T17 PO; -COLE625TAB PO
== END 2022-08-31 ==
LOC: M PT 12:30
PROVIDERS: ATTEND Otolaryngology
DX: I89.0 Lymphedema, not elsewhere classified (principal)

== ENCOUNTER 2022-09-20 13:30 | Outpatient (RCR) | payer MEDICARE ==
[~2022-09-20 13:30] MED LIST changes: +CLOP75TA99 PO; -PLAV1TAB2 PO
== END 2022-10-01 ==
LOC: M PT 13:30
PROVIDERS: ATTEND Otolaryngology
DX: I89.0 Lymphedema, not elsewhere classified (principal); C32.9 Malignant neoplasm of larynx, unspecified

== ENCOUNTER → 2022-10-16 | Outpatient (CLI) | payer MEDICARE ==
[~2022-10-16] MED LIST changes: +ASPI-161 PO; +MM S100C PO; +SYNT25TA PO
== END ==
LOC: M PLAIMG 13:31
PROVIDERS: ATTEND Internal Medicine Pulmonary Disease
DX: R91.8 Other nonspecific abnormal finding of lung field (principal); Z93.0 Tracheostomy status; J47.9 Bronchiectasis, uncomplicated; I70.0 Atherosclerosis of aorta; I25.10 Atherosclerotic heart disease of native coronary artery without angina pectoris; J84.9 Interstitial pulmonary disease, unspecified; E03.9 Hypothyroidism, unspecified; R53.83 Other fatigue; R09.02 Hypoxemia; Z93.1 Gastrostomy status; E78.2 Mixed hyperlipidemia

== ENCOUNTER → 2022-10-16 | Outpatient (CLI) | payer MEDICARE ==
[2022-10-16 20:39] LABS: ALKALINE PHOSPHATASE 84 U/L; ALT/SGPT 24 U/L (7.0-40); AST/SGOT 11 U/L (<34); BILIRUBIN,TOTAL 0.9 MG/DL (0.3-1.2); BLOOD UREA NITROGEN 18 MG/DL (9-23); CALCIUM LEVEL 10.3 MG/DL (8.3-10.6); CARBON DIOXIDE LEVEL 33 MMOL/L (20-31); CHLORIDE LEVEL 96 MMOL/L (98-107); CHOLESTEROL LEVEL 158 MG/DL (<200); CHOLESTEROL RISK RATIO 4.13 (<5); CREATININE FOR GFR 0.84 MG/DL (0.70-1.30); GLOMERULAR FILTRATION RATE > 60.0 (>42); GLUCOSE, FASTING 105 MG/DL (74-106); HDL CHOLESTEROL 38.2 MG/DL (>40); LDL CHOLESTEROL 99.6 MG/DL (<100); NON-HDL-C 120 MG/DL; POTASSIUM SERUM 4.3 MMOL/L (3.5-5.1); SODIUM LEVEL 138 MMOL/L (136-145); TOTAL PROTEIN 6.7 G/DL; TRIGLYCERIDES LEVEL 101 MG/DL (<150)
== END ==
LOC: M PLALAB 14:11
PROVIDERS: ATTEND Nurse Practitioner Family
DX: E78.2 Mixed hyperlipidemia (principal)

== ENCOUNTER → 2022-10-16 | Outpatient (CLI) | payer MEDICARE ==
[2022-10-16 18:03] LABS: BASO # 0.1 10^3/uL (0.0-0.2); BASO % 0.5 % (0.0-1.0); EOS % 0.4 % (0.0-3.0); HEMATOCRIT 48.3 % (42.0-52.0); HEMOGLOBIN 15.2 g/dl (13.5-17.5); LYMPH # 1.1 10^3/uL (1.5-5.0); LYMPH % 10.7 % (24.0-44.0); MEAN CORPUSCULAR HEMOGLOBIN 30.1 pg (27.0-33.0); MEAN CORPUSCULAR HGB CONC 31.5 g/dl (32.0-36.5); MEAN CORPUSCULAR VOLUME 95.6 fl (80.0-96.0); MONO # 0.6 10^3/uL (0.0-0.8); MONO % 6.1 % (2.0-8.0); NEUTROPHILS # 8.5 10^3/uL (1.5-8.5); NEUTROPHILS % 81.5 % (36.0-66.0); PLATELET COUNT, AUTOMATED 338 10^3/uL (150-450); RED BLOOD COUNT 5.05 10^6/uL (4.30-6.10); WHITE BLOOD COUNT 10.4 10^3/uL (4.0-10.0)
[2022-10-16 20:38] LABS: THYROID STIMULATING HORMONE 9.065 uIU/ML (0.55-4.78); TOTAL 25(OH) VITAMIN D 39.3 NG/ML (20.0-100.0)
== END ==
LOC: M PLALAB 14:13
PROVIDERS: ATTEND Family Medicine
DX: E03.9 Hypothyroidism, unspecified (principal); R53.83 Other fatigue; R09.02 Hypoxemia; Z93.0 Tracheostomy status; Z95.1 Presence of aortocoronary bypass graft

== ENCOUNTER 2022-11-12 15:11 | Inpatient (IN) | payer MEDICARE ==
[~2022-11-12] VITALS: Ht 165.1 cm; Wt 57.5 kg
[~2022-11-12 15:11] MED LIST changes: -ASPI-161 PO; -MM S100C PO; -SYNT25TA PO
[2022-11-12 16:22] LABS: BASO % 0.3 % (0.0-1.0); EOS # 0.1 10^3/uL (0.0-0.5); EOS % 0.4 % (0.0-3.0); HEMATOCRIT 44.4 % (42.0-52.0); HEMOGLOBIN 14.1 g/dl (13.5-17.5); LYMPH # 0.9 10^3/uL (1.5-5.0); LYMPH % 7.6 % (24.0-44.0); MEAN CORPUSCULAR HEMOGLOBIN 29.6 pg (27.0-33.0); MEAN CORPUSCULAR HGB CONC 31.8 g/dl (32.0-36.5); MEAN CORPUSCULAR VOLUME 93.3 fl (80.0-96.0); MONO # 0.7 10^3/uL (0.0-0.8); NEUTROPHILS # 9.9 10^3/uL (1.5-8.5); PLATELET COUNT, AUTOMATED 348 10^3/uL (150-450); RED BLOOD COUNT 4.76 10^6/uL (4.30-6.10); WHITE BLOOD COUNT 11.7 10^3/uL (4.0-10.0)
[2022-11-12 16:24] LABS: ALBUMIN 2.5 G/DL (3.2-5.2); ALKALINE PHOSPHATASE 85 U/L (46-116); ALT/SGPT 12 U/L (7.0-40); BILIRUBIN,DIRECT 0.5 MG/DL (<0.4); BILIRUBIN,TOTAL 1.7 MG/DL (0.3-1.2); BLOOD UREA NITROGEN 9 MG/DL (9-23); CALCIUM LEVEL 9.9 MG/DL (8.3-10.6); CARBON DIOXIDE LEVEL 33 MMOL/L (20-31); CHLORIDE LEVEL 96 MMOL/L (98-107); GLOMERULAR FILTRATION RATE > 60.0 (>42); GLUCOSE, FASTING 150 MG/DL (74-106); POTASSIUM SERUM 3.6 MMOL/L (3.5-5.1); SODIUM LEVEL 136 MMOL/L (136-145); TOTAL PROTEIN 6.3 G/DL (5.7-8.2)
[2022-11-12] MEDS ORDERED: ISOVUE-370 76% 100ML VIAL As Ordered ONE (17:02)
[2022-11-12 18:46] LABS: RSV AMPLIFICATION NEGATIVE (NEGATIVE)
[2022-11-12 18:50] LABS: INR 1.05; PROTHROMBIN TIME 13.9 SECONDS (12.5-14.5)
[2022-11-12 18:51] LABS: PARTIAL THROMBOPLASTIN TIME 30.9 SECONDS (24.8-34.2)
[2022-11-12 20:10] VITALS: O2SAT 97
[2022-11-12] MEDS ORDERED: ACETAMINOPHEN TAB 650MG DOSE (2X325MG) PO PRN (21:35)
[2022-11-12 22:30] VITALS: BP 125/75
[2022-11-12] MEDS ORDERED: PANT40TA29 PO (22:41)
[2022-11-12] MEDS ORDERED: METF500T13 PO (22:41)
[2022-11-12] MEDS ORDERED: SYNT25TA PO (22:41)
[2022-11-12] MEDS ORDERED: MM S100C PO (22:41)
[2022-11-12] MEDS ORDERED: ASPI-161 PO (22:41)
[2022-11-12] MEDS ORDERED: HOME MED LIST COMPLETE! XX SCH (22:45)
[2022-11-12 22:53] LABS: HEMOGLOBIN A1c 6.7 % (4.0-6.0)
[2022-11-12 23:18] LABS: THYROID STIMULATING HORMONE 10.426 uIU/ML (0.55-4.78)
[2022-11-12] MEDS: PANTOPRAZOLE 40MG VIAL IV SCH (23:30)
[2022-11-13] MEDS ORDERED: IPRATROPIUM 0.5MG/ALBUTEROL 2.5MG INH SOL UD 3ML (DUONEB) NEB PRN (01:05)
[2022-11-13] MEDS: LEVOTHYROXINE 100MCG (0.1MG) 5ML SDV PF (SOLUTION FORM) IV SCH (05:25)
[2022-11-13 05:41] VITALS: BP 110/75
[2022-11-13 07:06] LABS: AST/SGOT < 8 U/L (<34)
[2022-11-13 08:40] LABS: BLOOD UREA NITROGEN 19 MG/DL (9-23); CARBON DIOXIDE LEVEL 32 MMOL/L (20-31); CHLORIDE LEVEL 98 MMOL/L (98-107); CREATININE FOR GFR 0.82 MG/DL (0.70-1.30); GLOMERULAR FILTRATION RATE > 60.0 (>42); GLUCOSE, FASTING 130 MG/DL (74-106); POTASSIUM SERUM 4.1 MMOL/L (3.5-5.1); SODIUM LEVEL 137 MMOL/L (136-145)
[2022-11-13] MEDS ORDERED: ASPIRIN 300 MG SUPP PR SCH (09:00)
[2022-11-13] MEDS ORDERED: SCOPOLAMINE 1MG TRANSDERMAL PATCH TOP PRN (11:35)
[2022-11-13] MEDS ORDERED: BISACODYL 10MG SUPP PR PRN (11:35)
[2022-11-13] MEDS ORDERED: LORazepam 2 MG/ML VIAL IV PRN (11:35)
[2022-11-13] MEDS ORDERED: ONDANSETRON 4MG ORAL DISINTEGRATING TAB PO PRN (11:35)
[2022-11-13] MEDS ORDERED: MORPHINE 2 MG/ML 1ML VIAL IV PRN (11:35)
[2022-11-13 15:11] LABS: HEMATOCRIT 42.3 % (42.0-52.0); HEMOGLOBIN 13.7 g/dl (13.5-17.5)
[2022-11-13] MEDS: PANTOPRAZOLE 40MG VIAL IV SCH (22:02)
[2022-11-14] MEDS: LEVOTHYROXINE 100MCG (0.1MG) 5ML SDV PF (SOLUTION FORM) IV SCH (03:47)
[2022-11-14] MEDS: PANTOPRAZOLE 40MG VIAL IV SCH (19:56)
[2022-11-15] MEDS: LEVOTHYROXINE 100MCG (0.1MG) 5ML SDV PF (SOLUTION FORM) IV SCH (05:43)
[2022-11-15] MEDS: MORPHINE 10MG/0.5ML ORAL CONCENTRATE SOLUTION U/D SL PRN ×2 (18:28→20:53)
[2022-11-15] MEDS: PANTOPRAZOLE 40MG VIAL IV SCH (20:54)
[2022-11-16] MEDS: LEVOTHYROXINE 100MCG (0.1MG) 5ML SDV PF (SOLUTION FORM) IV SCH (06:00)
== END 2022-11-16 02:27 | disposition expired | DRG 205 ==
LOC: M ED 15:11 → M MS5PR 20:57 → M ED INP 20:57 → ENRESERV 21:56 → M MS5PR 22:30
PROVIDERS: ADMIT Internal Medicine; ATTEND Internal Medicine
DX: J95.01 Hemorrhage from tracheostomy stoma (principal); E43 Unspecified severe protein-calorie malnutrition; J96.01 Acute respiratory failure with hypoxia; R64 Cachexia; C77.0 Secondary and unspecified malignant neoplasm of lymph nodes of head, face and neck; K92.0 Hematemesis; C49.9 Malignant neoplasm of connective and soft tissue, unspecified; J39.2 Other diseases of pharynx; Z66 Do not resuscitate; R04.0 Epistaxis; E78.5 Hyperlipidemia, unspecified; I89.0 Lymphedema, not elsewhere classified; I25.10 Atherosclerotic heart disease of native coronary artery without angina pectoris; N52.9 Male erectile dysfunction, unspecified; K21.9 Gastro-esophageal reflux disease without esophagitis; I73.9 Peripheral vascular disease, unspecified; T78.3XXA Angioneurotic edema, initial encounter; D72.829 Elevated white blood cell count, unspecified; E11.51 Type 2 diabetes mellitus with diabetic peripheral angiopathy without gangrene; E03.9 Hypothyroidism, unspecified; J44.9 Chronic obstructive pulmonary disease, unspecified; F17.210 Nicotine dependence, cigarettes, uncomplicated; C32.1 Malignant neoplasm of supraglottis; Z79.890 Hormone replacement therapy; Z95.5 Presence of coronary angioplasty implant and graft; Z79.82 Long term (current) use of aspirin; Z79.84 Long term (current) use of oral hypoglycemic drugs; Z92.3 Personal history of irradiation; Z92.21 Personal history of antineoplastic chemotherapy; Z79.899 Other long term (current) drug therapy; Z20.822 Contact with and (suspected) exposure to COVID-19; Z88.0 Allergy status to penicillin; Z51.5 Encounter for palliative care